=== PATIENT | female | born 1965 | race Caucasian/White ===

== ENCOUNTER 2016-06-01 14:36 | Outpatient (CLI) | payer MEDICAID | END 2016-06-01 14:37 | disposition home or self-care (01) | DX: B17.10 Acute hepatitis C without hepatic coma (principal) ==

== ENCOUNTER 2016-06-15 10:43 | Emergency (ER) | payer MEDICAID ==
[2016-06-15] MEDS ORDERED: ACETAMINOPHEN 325 MG TABLET PO STA (11:44)
[2016-06-15] MEDS ORDERED: ACETAMINOPHEN 325 MG TABLET PO ONE (11:48)
== END 2016-06-15 14:17 | disposition home or self-care (01) ==
DX: M25.551 Pain in right hip (principal); G89.29 Other chronic pain; M25.851 Other specified joint disorders, right hip; F17.200 Nicotine dependence, unspecified, uncomplicated
CPT/HCPCS: 73502; 93971; 99283; A9270

== ENCOUNTER 2016-07-24 00:49 | Emergency (ER) | payer MEDICAID ==
[2016-07-24] MEDS ORDERED: METHOCARBAMOL 500 MG TABLET PO STA (01:11)
[2016-07-24] MEDS ORDERED: HYDROcod/ACET 5/325 Prepack 6 PO ONE ×2 (01:11→01:32)
[2016-07-24] MEDS ORDERED: HYDROcod/ACETAM 5/325 MG TABLET PO STA (01:11)
[2016-07-24] MEDS ORDERED: IBUPROFEN 600 MG TABLET PO STA (01:11)
[2016-07-24] MEDS ORDERED: HYDROcod/ACETAM 5/325 MG TABLET ONE (01:31)
[2016-07-24] MEDS ORDERED: IBUPROFEN 600 MG TABLET PO ONE (01:32)
[2016-07-24] MEDS ORDERED: METHOCARBAMOL 500 MG TABLET PO ONE (01:32)
== END 2016-07-24 02:13 | disposition home or self-care (01) ==
DX: M54.41 Lumbago with sciatica, right side (principal); F17.200 Nicotine dependence, unspecified, uncomplicated
CPT/HCPCS: 99283; A9270

== ENCOUNTER 2016-08-24 17:56 | Outpatient (CLI) | payer MEDICAID | END 2016-08-24 17:57 | disposition home or self-care (01) | DX: J98.9 Respiratory disorder, unspecified (principal) ==

== ENCOUNTER 2016-09-13 00:29 | Outpatient (CLI) | payer MEDICAID | END 2016-09-13 00:30 | disposition critical access hospital (66) | LOC: EMS 00:29 | PROVIDERS: ATTEND Surgery | DX: M79.645 Pain in left finger(s) (principal) | CPT/HCPCS: A0425; A0429 ==

== ENCOUNTER 2016-09-13 00:41 | Emergency (ER) | payer MEDICAID ==
[2016-09-13] MEDS ORDERED: LIDOCAINE 2% 10 ML MDV SUBQ STA (00:55)
[2016-09-13] MEDS ORDERED: LIDOCAINE 2% 10 ML MDV ONE (00:57)
[2016-09-13] MEDS ORDERED: CLINDAMYCIN 150 MG CAPSULE PO STA (01:10)
[2016-09-13] MEDS ORDERED: CLINDAMYCIN 150 MG CAPSULE PO ONE (01:13)
== END 2016-09-13 01:25 | disposition home or self-care (01) ==
DX: L03.012 Cellulitis of left finger (principal); B95.62 Methicillin resistant Staphylococcus aureus infection as the cause of diseases classified elsewhere; R03.0 Elevated blood-pressure reading, without diagnosis of hypertension; F17.200 Nicotine dependence, unspecified, uncomplicated; Z88.2 Allergy status to sulfonamides
CPT/HCPCS: 10060; 87070; 87077; 87181; 87205; 99283; A9270

== ENCOUNTER 2017-05-22 19:04 | Emergency (ER) | payer MEDICAID ==
[2017-05-22 19:14] VITALS: BP 141/76
[2017-05-22 19:47] LABS: CLARITY,URINE CLOUDY (CLEAR)
[2017-05-22 19:51] LABS: BACTERIA,URINE Few /HPF (None Seen); SQUAMOUS EPITHELIAL CELL,UR FEW Squamous (<= Few)
--- NOTE | 2017-05-22 19:57 | ED Physician Documentation ---
PD HPI FEMALE - Stated complaint Stated Complaint: FEM - Chief complaint Chief Complaint: General - History obtained from History obtained from: Patient - History of Present Illness Timing - onset: How many days ago (few) Timing - duration: Days Timing - details: Gradual onset, Still present Associated symptoms: Dysuria, Urinary frequency. No: Fever, Vaginal bleeding, Vaginal discharge, Genital sore/lesion Similar symptoms before: Diagnosis (UTI) Review of Systems Constitutional: denies: Fever, Chills : reports: Dysuria, Frequency. 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 HEENT: None Psych: Depression, Anxiety, Schizophrenia Musculoskeletal: None, Chronic back pain Derm: None - Past Surgical History Past Surgical History: Yes Derm: Skin grafts - Present Medications Home Medications: Ambulatory Orders Medication Instructions Recorded Confirmed Cephalexin [Keflex] 500 mg PO TID #18 capsule 05/22/17 - Allergies Allergies/Adverse Reactions: Allergies Allergy/AdvReac Type Severity Reaction Status Date / Time Sulfa (Sulfonamide Allergy Intermediate Edema Verified 05/22/17 19:14 Antibiotics) - Social History Does the pt smoke?: Yes Smoking Status: Current every day smoker Does the pt drink ETOH?: Yes Does the pt have substance abuse?: No - Immunizations Immunizations are current?: Yes - POLST Patient has POLST: No PD ED PE NORMAL - Vitals Vital signs reviewed: Yes - General General: Alert and oriented X 3, Well developed/nourished - Abdomen Abdomen: Soft, Non tender - Female Female : Deferred - Back Back: No CVA TTP Results - Vitals Vitals: Oxygen O2 Source Room air - Labs Labs: Microbiology 05/22/17 19:25 Urine Culture - Final Urine,Clean Catch 10-50,000 COLONIES/ML Polymicrobial growth including potential pathogens. This is suggestive of skin or other contamination. Laboratory Tests 05/22/17 19:25 Urine Color DK. ORANGE Urine Clarity CLOUDY Urine pH Ur Specific Mackay Urine Protein Urine Glucose (UA) Urine Ketones Urine Occult Blood Urine Nitrite Urine Bilirubin Urine Urobilinogen Ur Leukocyte Esterase Urine RBC 11-25 H Urine WBC >25 H Ur Squamous Epith Cells FEW Squamous Urine Bacteria Few Ur Microscopic Review INDICATED Urine Culture Comments INDICATED Urine HCG, Qual PD MEDICAL DECISION MAKING - ED course Complexity details: reviewed results, considered differential, d/w patient Departure - Departure Disposition: 01 Home, Self Care Clinical Impression: Dysuria UTI (urinary tract infection) Qualifiers: Urinary tract infection type: acute cystitis Hematuria presence: without hematuria Qualified Code(s): N30.00 - Acute cystitis without hematuria Condition: Stable Record reviewed to determine appropriate education?: Yes Instructions: ED UTI Cystitis Female Follow-Up: Tuyet Rocha ARNP [Primary Care Provider] - Prescriptions: Cephalexin [Keflex] 500 mg PO TID #18 capsule Comments: Drink lots of fluids. Azo if needed for discomfort. Tylenol or ibuprofen if needed for pain or fevers. Keflex 3 times a day for 6 days for the infection. Recheck if not improving over the next few days. Discharge Date/Time: 05/22/17 20:23
[2017-05-22] MEDS ORDERED: cephALEXin 250 MG CAPSULE PO STA (20:17)
== END 2017-05-22 20:23 | disposition home or self-care (01) ==
LOC: ED 19:04
DX: R30.0 Dysuria (principal); N30.00 Acute cystitis without hematuria; F17.200 Nicotine dependence, unspecified, uncomplicated
CPT/HCPCS: 81001; 81025; 87086; 99282; 99283; A9270; 81003

== ENCOUNTER 2017-07-27 23:41 | Emergency (ER) | payer MEDICAID ==
[2017-07-28] MEDS ORDERED: METOCLOPRAMIDE 10 MG/2 ML VIAL IVP STA (00:05)
[2017-07-28] MEDS ORDERED: diphenhydrAMINE INJ 50 MG/ML VIAL IVP STA (00:05)
[2017-07-28] MEDS ORDERED: SODIUM CHLORIDE 0.9% 1,000 ML IV ONE (00:05)
[2017-07-28] MEDS ORDERED: KETOROLAC 60 MG/2 ML VIAL IVP STA (00:05)
--- NOTE | 2017-07-28 00:43 | XRAY Preliminary Report ---
Exam: XR CHEST 2 VIEW X-RAY IMPRESSION: 1. Probable COPD with bronchitis. 2. No consolidation. [facility] SITE ID: [id number]
--- NOTE | 2017-07-28 01:00 | ED Physician Documentation ---
PD HPI URI - Stated complaint Stated Complaint: ANTUNEZ, CHEST PAIN, BACK PAIN - Chief complaint Chief Complaint: Resp - History obtained from History obtained from: Patient - History of Present Illness Timing - onset: How many days ago (3) Timing details: Gradual onset, Still present Associated symptoms: Dry cough. No: Fever, Chills Similar symptoms before: No diagnosis Recently seen: Not recently seen - Additional information Additional information: Patient is a 52 year old female with a history of migraines who is presenting to the emergency department for cough and headache. patient states that she has been coughing for the last few days and no her chest hurts when she coughs. She also reports that she has a headache and has run out of her migraine medications. Review of Systems Constitutional: denies: Fever, Chills Eyes: reports: Reviewed and negative Ears: reports: Reviewed and negative Nose: reports: Reviewed and negative Throat: reports: Reviewed and negative Cardiac: reports: Chest pain / pressure. denies: Palpitations Respiratory: reports: Dyspnea, Cough, Wheezing GI: denies: Nausea, Vomiting : reports: Reviewed and negative Musculoskeletal: reports: Reviewed and negative Neurologic: reports: Headache. 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 HEENT: None Psych: Depression, Anxiety, Schizophrenia Musculoskeletal: None, Chronic back pain Derm: None - Past Surgical History Past Surgical History: Yes Derm: Skin grafts - Present Medications Home Medications: Ambulatory Orders Medication Instructions Recorded Confirmed Benzonatate [Tessalon] 100 mg PO TID #14 capsule 07/28/17 predniSONE [Prednisone] 40 mg PO DAILY 5 Days tablet 07/28/17 - Allergies Allergies/Adverse Reactions: Allergies Allergy/AdvReac Type Severity Reaction Status Date / Time Sulfa (Sulfonamide Allergy Intermediate Edema Verified 07/27/17 23:53 Antibiotics) - Social History Does the pt smoke?: Yes Smoking Status: Current every day smoker Does the pt drink ETOH?: Yes Does the pt have substance abuse?: No - Immunizations Immunizations are current?: Yes - POLST Patient has POLST: No PD ED PE NORMAL - Vitals Vital signs reviewed: Yes - General General: Alert and oriented X 3, No acute distress - HEENT HEENT: Atraumatic, PERRL, Moist mucous membranes - Neck Neck: Supple, no meningeal sign, No JVD - Cardiac Cardiac: RRR, No murmur - Respiratory Respiratory: No respiratory distress - Abdomen Abdomen: Soft, Non tender - Derm Derm: Normal color, Warm and dry, No rash - Extremities Extremities: No deformity, Normal ROM s pain, No calf tenderness / cord - Neuro Neuro: Alert and oriented X 3, pyroglazer 2-12 intact, No motor deficit, Normal speech Eye Opening: Spontaneous Motor: Obeys Commands Verbal: Oriented GCS Score: 15 - Psych Psych: Normal mood PD ED PE EXPANDED - Psych Psych: Other (odd affect, possible use of sympathometics ) Results - Vitals Vitals: Vital Signs - 24 hr 07/27/17 23:48 Temperature 36.8 C Heart Rate 104 H Respiratory 18 Rate Blood Pressure 144/87 H O2 Saturation 97 Oxygen O2 Source Room air - Rads (name of study) chest x-ray Radiology: Final report received (suspicious for copd/bronchitis) PD MEDICAL DECISION MAKING - ED course Complexity details: reviewed old records, reviewed results, re-evaluated patient , considered differential, d/w patient, d/w family ED course: Patient was seen and examined at bedside. Patient refused IV hydration or medications. Patient was treated with toradol, benadryl and reglan. chest x- ray was ordered. When patient returned from imaging the results were reviewed. Patient had no sign of acute pneumonia but findings were worrisome for bronchitis. patient was treated with prednisone. Patient required no further work up and was stable for discharge with outpatient follow up. Departure - Departure Disposition: 01 Home, Self Care Clinical Impression: Bronchitis Condition: Good Instructions: ED Bronchitis Asthmatic Follow-Up: Tuyet Rocha ARNP [Primary Care Provider] - Prescriptions: Benzonatate [Tessalon] 100 mg PO TID #14 capsule predniSONE [Prednisone] 40 mg PO DAILY 5 Days tablet Comments: Your symptoms today are being caused by bronchitis. You have been placed on prednisone for the next 5 days. You should take the tessalon perles for cough. You should follow up with your doctor this week if your symptoms don't improve. You should make sure you stay well hydrated and get plenty of sleep as those can be two major triggers for migraines.
[2017-07-28] MEDS ORDERED: predniSONE 20 MG TABLET PO STA (01:01)
--- NOTE | 2017-07-28 01:08 | XRAY Report ---
EXAM: CHEST RADIOGRAPHY EXAM DATE: 07/28/2017 12:31 AM. CLINICAL HISTORY: Fever, cough. COMPARISON: 08/24/2016. TECHNIQUE: 2 views. FINDINGS: Lungs/Pleura: The lungs are hyperinflated. Bronchial wall thickening noted. No focal consolidation, e ffusions or pneumothorax. Mediastinum: Heart and mediastinal contours are unremarkable. Other: None. IMPRESSION: 1. Probable COPD with bronchitis. 2. No consolidation. [facility] Referring Provider Line: [phone] SITE ID: [id number]
[2017-07-28 01:11] VITALS: BP 132/81
== END 2017-07-28 01:14 | disposition home or self-care (01) ==
LOC: ED 23:41
DX: J40 Bronchitis, not specified as acute or chronic (principal); F17.200 Nicotine dependence, unspecified, uncomplicated
CPT/HCPCS: 71046; 96374; 96375; 99283; J1200; J2765; J7512

== ENCOUNTER 2017-10-06 08:05 | Emergency (ER) | payer MEDICAID ==
[2017-10-06 08:15] VITALS: BP 145/86
--- NOTE | 2017-10-06 09:12 | ED Physician Documentation ---
PD HPI CHEST PAIN - Stated complaint Stated Complaint: R SHOULDER PX - Chief complaint Chief Complaint: General - History obtained from History obtained from: Patient - History of Present Illness Timing - onset: How many days ago (3) Timing - onset during: Rest Timing - duration: Days (3) Timing - details: Gradual onset, Still present Quality: Sharp, Pain Location: Right chest, Right shoulder/arm Radiation: Neck Improved by: Nothing Worsened by: Movement, Palpation, Position Associated symptoms: No: Shortness of air, Diaphoresis, Nausea, Vomiting, Feeling faint / dizzy, General Weakness, Palpitations, Cough Similar symptoms before: Has not had sx before Recently seen: Emergency Dept - Additional information Additional information: 52-year-old female with a history of COPD had a fall about 2 weeks ago injuring her left leg. She did not think much of the fall at the time but over the last 3 days she has began to develop some pain in her right neck shoulder and clavicle and in her right lower back radiating into her groin. She is wondering if this may might have something to do with a fall that she had. She does not feel sick at this time she denies fever chills sweats or new cough. Review of Systems Constitutional: denies: Fever Eyes: denies: Decreased vision Ears: denies: Ear pain Nose: denies: Rhinorrhea / runny nose, Congestion Throat: denies: Sore throat Cardiac: reports: Chest pain / pressure. 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 HEENT: None Psych: Depression, Anxiety, Schizophrenia Musculoskeletal: None, Chronic back pain Derm: None - Past Surgical History Past Surgical History: Yes Derm: Skin grafts - Present Medications Home Medications: Ambulatory Orders Medication Instructions Recorded Confirmed No Known Home Medications [No 10/06/17 10/06/17 Known Home Medications] - Allergies Allergies/Adverse Reactions: Allergies Allergy/AdvReac Type Severity Reaction Status Date / Time Sulfa (Sulfonamide Allergy Intermediate Edema Verified 07/27/17 23:53 Antibiotics) - Social History Does the pt smoke?: Yes Smoking Status: Current every day smoker Does the pt drink ETOH?: Yes Does the pt have substance abuse?: No - Immunizations Immunizations are current?: Yes - POLST Patient has POLST: No PD ED PE NORMAL - Vitals Vital signs reviewed: Yes (hypertensive mild ) - General General: Alert and oriented X 3, No acute distress, Well developed/nourished, Other (poor rambling historian. ) - HEENT HEENT: Atraumatic, PERRL, EOMI - Neck Neck: Supple, no meningeal sign, No bony TTP - Cardiac Cardiac: RRR, No murmur - Respiratory Respiratory: No respiratory distress, Clear bilaterally - Abdomen Abdomen: Soft, Non tender - Back Back: No CVA TTP, No spinal TTP - Derm Derm: Normal color, Warm and dry, No rash - Extremities Extremities: No deformity, No edema - Neuro Neuro: No motor deficit, No sensory deficit, Normal speech Eye Opening: Spontaneous Motor: Obeys Commands Verbal: Oriented GCS Score: 15 - Psych Psych: Normal mood, Normal affect Results - Vitals Vitals: Vital Signs - 24 hr 10/06/17 08:11 Temperature 36.6 C Heart Rate 92 Respiratory 16 Rate Blood Pressure 145/86 H O2 Saturation 100 Oxygen O2 Source Room air - EKG (time done) 0824 Rate: Rate (enter#) (82) Ischemia: Non specific changes Compare to prior EKG: Old EKG unavailable Computer interpretation: Agree with computer - Rads (name of study) 2 veiw chest Radiology: Prelim report reviewed (Impression: 1. No acute cardiopulmonary abnormality. 2 Vague nodular opacity at the left mid to upper lung may represent summation artifact. CT should be considered for further evaluation.) , EMP read indepedently, See rad report PD MEDICAL DECISION MAKING - ED course Complexity details: reviewed results, re-evaluated patient, considered differential, d/w patient ED course: 52-year-old female with some vague symptoms of pain in her right clavicle area and into her right axilla and down the right arm and into her neck has no specific findings on physical exam and does not have a functional deficit. She is complaining of some pain in the lower back radiating around to the front as well. She is unable to provide adequate history as this is the timing of each of these types of pains.She is treated for cervical radiculopathy with 10 mg of dexamethasone. An x-ray of the chest is obtained and no abnormalities of the clavicle are seen. The patient leaves the emergency department before her chest x-ray is formally read and she calls back to the emergency department regarding the results of her x-ray. I personally talked to the patient to inform her that there was a concern of a nodule in the chest and CT scanning is recommended. Departure - Departure Disposition: 01 Home, Self Care Clinical Impression: Cervical radiculopathy Condition: Stable Instructions: ED Cervical Radiculopathy Follow-Up: Tuyet Rocha ARNP [Primary Care Provider] - Discharge Date/Time: 10/06/17 09:55
[2017-10-06] MEDS ORDERED: DEXAMETHASONE 10 MG/ML VIAL PO STA (09:32)
[2017-10-06] MEDS ORDERED: CHERRY SYRUP 10 ML UDC PO ONE (09:51)
--- NOTE | 2017-10-06 09:57 | XRAY Report ---
EXAM: CHEST RADIOGRAPHY EXAM DATE: 10/06/2017 09:29 AM. CLINICAL HISTORY: Right upper chest pain. COMPARISON: 07/28/2017. TECHNIQUE: 2 views. FINDINGS: Lungs/Pleura: Vague nodular opacity at the left mid to upper lung may represent summation artifact. O therwise no focal pulmonary opacity. No significant pleural effusion or evidence of pneumothorax. Mediastinum: Heart and mediastinal contours are unremarkable. Other: None. IMPRESSION: 1. No acute cardiopulmonary abnormality. 2. Vague nodular opacity at the left mid to upper lung may represent summation artifact. CT should be considered for further evaluation. [facility] Referring Provider Line: [phone] SITE ID: [id number]
--- NOTE | 2017-10-06 09:57 | XRAY Preliminary Report ---
Exam: XR CHEST 2 VIEW X-RAY IMPRESSION: 1. No acute cardiopulmonary abnormality. 2. Vague nodular opacity at the left mid to upper lung may represent summation artifact. CT should be considered for further evaluation. [facility] SITE ID: [id number]
== END 2017-10-06 09:55 | disposition home or self-care (01) ==
LOC: ED 08:05
DX: M54.12 Radiculopathy, cervical region (principal); F17.200 Nicotine dependence, unspecified, uncomplicated
CPT/HCPCS: 71046; 93005; 99283; 99284; A9270

== ENCOUNTER 2017-10-13 11:46 | Outpatient (CLI) | payer MEDICAID ==
--- NOTE | 2017-10-13 12:27 | XRAY Report ---
Procedure Date: 10/13/2017 Accession Number: [id number] / [id number] Procedure: XRS - Clavicle RT CPT Code: FULL RESULT: EXAM: Clavicle RT DATE: 10/13/2017 11:57 AM CLINICAL HISTORY: NECK PAIN, CLAVICLE PAIN, RIGHT COMPARISON: Chest x-ray 10/06/2017 TECHNIQUE: AP and oblique views of the right clavicle FINDINGS: There is no evidence of clavicular fracture. Minimal degenerative changes are seen in the acromioclavicular joint. No foreign body is seen in the soft tissues. IMPRESSION: No evidence of clavicular fracture. Minimal degenerative changes of the AC joint.
== END 2017-10-13 11:47 | disposition home or self-care (01) ==
LOC: DI.S 11:46
PROVIDERS: ATTEND Nurse Practitioner Family
DX: M19.011 Primary osteoarthritis, right shoulder (principal)

== ENCOUNTER 2017-10-23 10:00 | Outpatient (CLI) | payer MEDICAID ==
--- NOTE | 2017-10-25 09:27 | CT Report ---
Procedure Date: 10/23/2017 Accession Number: [id number] / [id number] Procedure: CT - Chest W/O CPT Code: FULL RESULT: EXAM: CT CHEST EXAM DATE: 10/23/2017 11:00 AM. CLINICAL HISTORY: Vague nodular opacity at left mid to upper lung noted on recent chest x-ray. These assess. COMPARISONS: Chest x-ray from 10/06/2017 and 07/28/2017. TECHNIQUE: Routine helical CT imaging was performed through the chest. IV contrast: None. Reconstructions: Coronal and sagittal. In accordance with CT protocol optimization, one or more of the following dose reduction techniques were utilized for this exam: automated exposure control, adjustment of mA and/or KV based on patient size, or use of iterative reconstructive technique. FINDINGS: Lungs/Pleura: No nodules. Minimal biapical subpleural mclean small cysts/bullae. No consolidation. No pleural effusions and no evidence of interstitial lung disease. No abnormalities are identified in the left mid-upper lung to coincide with the density noted on recent chest x-ray. Parenchymal cyst in the left lower lobe measuring 9 mm. Mediastinum: The visualized lateral gland is unremarkable. Heart size is normal. Trace pericardial effusion. Very small hiatal hernia. No enlarged mediastinal or hilar lymph nodes. No mediastinal hematoma. Maximal size of the mid ascending aorta measures 3.5 cm. Thoracic aortic calcified plaque. Bones: Degenerative changes of the thoracic spine. No acute osseous abnormalities. Mild thoracic scoliosis. Visualized Abdomen: Included portions of the liver, gallbladder, adrenals, spleen, pancreas and left kidney as well as the stomach and colon are unremarkable. Other: None. IMPRESSION: 1. No parenchymal lung abnormalities R identified in particular within the left mid-upper lung to coincide with the density noted on recent chest x-ray from 10/06/2017. No parenchymal nodules. 2. No thoracic adenopathy. [facility]
== END 2017-10-23 23:59 ==
LOC: DI 10:00
PROVIDERS: ATTEND Nurse Practitioner Family
DX: R91.8 Other nonspecific abnormal finding of lung field (principal)
CPT/HCPCS: 71250

== ENCOUNTER 2017-11-07 06:52 | Emergency (ER) | payer MEDICAID ==
--- NOTE | 2017-11-07 08:09 | ED Physician Documentation ---
PD HPI ABD PAIN - Stated complaint Stated Complaint: ABD PX - Chief complaint Chief Complaint: Abd Pain - History obtained from History obtained from: Patient - History of Present Illness Timing - onset: How many days ago (2-3) Timing - duration: Days (2-3) Timing - details: Gradual onset, Still present, Waxing and waning Quality: Cramping, Aching Location: All over / everywhere Radiation: No: Lower back, Left flank, Right flank Improved by: Laying still Worsened by: Eating, Position (lying on back), Palpation. No: Breathing Associated symptoms: Nausea. No: Fever, Vomiting, Diarrhea, Melena Similar symptoms before: Has not had sx before Recently seen: Not recently seen Review of Systems Constitutional: reports: Myalgias. denies: Fever, Chills Nose: denies: Rhinorrhea / runny nose, Congestion Throat: denies: Sore throat Cardiac: denies: Chest pain / pressure, Palpitations Respiratory: denies: Cough GI: reports: Abdominal Pain, Nausea. 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 HEENT: None Psych: Depression, Anxiety, Schizophrenia Musculoskeletal: None, Chronic back pain Derm: None - Past Surgical History Past Surgical History: Yes Derm: Skin grafts - Present Medications Home Medications: Ambulatory Orders Medication Instructions Recorded Confirmed Dicyclomine [Bentyl] 10 mg PO QID PRN #20 capsule 11/07/17 Naproxen 375 mg PO BID #15 tablet 11/07/17 Ondansetron HCl [Zofran] 4 mg PO Q6H PRN #20 tablet 11/07/17 - Allergies Allergies/Adverse Reactions: Allergies Allergy/AdvReac Type Severity Reaction Status Date / Time Sulfa (Sulfonamide Allergy Intermediate Edema Verified 11/07/17 06:57 Antibiotics) - Social History Does the pt smoke?: Yes Smoking Status: Current every day smoker Does the pt drink ETOH?: Yes Does the pt have substance abuse?: No - Immunizations Immunizations are current?: Yes - POLST Patient has POLST: No PD ED PE NORMAL - Vitals Vital signs reviewed: Yes - General General: Alert and oriented X 3, No acute distress, Well developed/nourished - HEENT HEENT: PERRL, Pharynx benign - Neck Neck: Supple, no meningeal sign, No adenopathy - Cardiac Cardiac: RRR, No murmur - Respiratory Respiratory: Clear bilaterally - Abdomen Abdomen: Normal bowel sounds, Soft, Non distended, No organomegaly, Other ( tender diffusely without guarding nor percussion tenderness. ) - Female Female : Deferred - Rectal Rectal: Deferred - Derm Derm: Normal color, Warm and dry - Neuro Neuro: Alert and oriented X 3, No motor deficit, Normal speech Results - Vitals Vitals: Oxygen O2 Source Room air - Labs Labs: Laboratory Tests 11/07/17 11/07/17 08:36 08:36 WBC 10.1 RBC 4.87 Hgb 15.0 Hct 44.1 MCV 90.6 MCH 30.7 MCHC 33.9 RDW 13.3 Plt Count 272 MPV 8.0 Neut # (Auto) 6.6 Lymph # (Auto) 2.6 Cassia # (Auto) 0.6 Eos # (Auto) 0.2 Baso # (Auto) 0.1 Absolute Nucleated RBC 0.00 Nucleated RBC % 0.0 Sodium 133 L Potassium 4.1 Chloride 97 L Carbon Dioxide 26 Anion Gap 10.0 BUN 13 Creatinine 0.6 Estimated GFR (MDRD) 104 Glucose 122 H Calcium 9.0 Total Bilirubin 0.4 AST 20 ALT 24 Alkaline Phosphatase 98 Total Protein 7.7 Albumin 3.8 Globulin 3.9 Albumin/Globulin Ratio 1.0 Lipase 26 - Rads (name of study) abd/pelvic CT Radiology: Prelim report reviewed (no acute process. ) PD MEDICAL DECISION MAKING - ED course Complexity details: considered differential (Not clear cause of the pain. Feeling better with meds and fluids. Labs are good. CT no acute process. ), d/w patient - Sepsis Event Vital Signs: Oxygen O2 Source Room air Departure - Departure Disposition: 01 Home, Self Care Clinical Impression: Abdominal pain Qualifiers: Abdominal location: generalized Qualified Code(s): R10.84 - Generalized abdominal pain Condition: Stable Record reviewed to determine appropriate education?: Yes Instructions: ED Abdominal Pain Unkn Cause Follow-Up: Tuyet Rocha ARNP [Primary Care Provider] - Prescriptions: Dicyclomine [Bentyl] 10 mg PO QID PRN #20 capsule PRN Reason: Spasms Naproxen 375 mg PO BID #15 tablet Ondansetron HCl [Zofran] 4 mg PO Q6H PRN #20 tablet PRN Reason: Nausea / Vomiting Comments: Drink lots of fluids. Your CT scan and blood tests are normal. There is no signs of focal abnormality such as appendicitis, gallbladder, kidney stones, obstruction. Your symptoms sound likely to be some intestinal cramping and spasming. This might be food related or viral at times. Use naproxen twice daily for the next few days for pain and inflammation. Add Zofran if needed for nausea. Dicyclomine for pain and cramps. Recheck if not overall better in the next couple of days and return sooner if worse. Discharge Date/Time: 11/07/17 09:54
[2017-11-07] MEDS ORDERED: ONDANSETRON ODT 4 MG TABLET TL STA (08:22)
[2017-11-07] MEDS ORDERED: KETOROLAC 30 MG/ML VIAL IM STA (08:22)
[2017-11-07] MEDS ORDERED: HYDROcod/ACETAM 5/325 MG TABLET PO STA (08:22)
[2017-11-07 08:44] LABS: BASOPHILS # (AUTO) 0.1 10^3/uL (0.0-0.1); BASOPHILS % (AUTO) 0.8 %; EOSINOPHILS # (AUTO) 0.2 10^3/uL (0.0-0.7); EOSINOPHILS % (AUTO) 1.8 %; LYMPHOCYTES # (AUTO) 2.6 10^3/uL (1.5-3.5); LYMPHOCYTES % (AUTO) 25.7 %; MEAN CORPUSCULAR HEMOGLOBIN 30.7 pg (27.0-31.0); MEAN CORPUSCULAR HGB CONC 33.9 g/dL (32.0-36.0); MEAN CORPUSCULAR VOLUME 90.6 fL (81.0-99.0); MONOCYTES # (AUTO) 0.6 10^3/uL (0.0-1.0); MONOCYTES % (AUTO) 6.1 %; NEUTROPHILS # (AUTO) 6.6 10^3/uL (1.5-6.6); NEUTROPHILS % (AUTO) 65.6 %; PLT - PLATELET COUNT 272 10^3/uL (130-450); RED BLOOD COUNT 4.87 10^6/uL (4.20-5.40); RED CELL DISTRIBUTION WIDTH 13.3 % (12.0-15.0); WHITE BLOOD COUNT 10.1 x10^3/uL (4.8-10.8)
[2017-11-07 08:55] LABS: ALBUMIN 3.8 g/dL (3.2-5.5); BILIRUBIN,TOTAL 0.4 mg/dL (0.2-1.0); CREATININE 0.6 mg/dL (0.4-1.0); TOTAL PROTEIN 7.7 g/dL (6.7-8.2)
--- NOTE | 2017-11-07 09:16 | CT Report ---
Procedure Date: 11/07/2017 Accession Number: [id number] / [id number] Procedure: CT - Abdomen/Pelvis W/O CPT Code: FULL RESULT: EXAM: CT ABDOMEN AND PELVIS WITHOUT CONTRAST EXAM DATE: 11/07/2017 08:55 AM. CLINICAL HISTORY: Lower abdominal pain; patient did not want IV started. COMPARISONS: Pelvic ultrasound 10/07/2012. TECHNIQUE: Routine helical CT imaging was performed through the abdomen and pelvis. IV contrast: None. Enteric contrast: No. Reconstructions: Coronal and sagittal. In accordance with CT protocol optimization, one or more of the following dose reduction techniques were utilized for this exam: automated exposure control, adjustment of mA and/or KV based on patient size, or use of iterative reconstructive technique. FINDINGS: Lung Bases: Unremarkable. Liver: Unremarkable noncontrast appearance. Gallbladder/Bile Ducts: Unremarkable. Spleen: Unremarkable noncontrast appearance. Pancreas: Unremarkable. Adrenal Glands: Unremarkable. Kidneys: No hydronephrosis or calculi. Peritoneal Cavity/Bowel: No free fluid, free air or adenopathy. No evidence of bowel obstruction or abnormal stool burden. There is mild diverticulosis of the sigmoid colon without evidence of acute diverticulitis. The appendix is well visualized and normal. Pelvic Organs: Unremarkable noncontrast appearance. The bladder and visualized pelvic organs are within normal limits. Vasculature: There is moderate atherosclerotic calcification of the abdominal aorta and iliac arteries. No aneurysm. Bones: No acute osseous abnormality. There are mild degenerative changes of the lower thoracic and lumbar spine. Other: None. IMPRESSION: 1. Mild diverticulosis of the sigmoid colon without evidence of acute diverticulitis. 2. Otherwise unremarkable noncontrast CT of the abdomen and pelvis. No intra-abdominal inflammatory change, bowel obstruction, or other acute abnormality visualized. RADIA
[2017-11-07 09:54] VITALS: BP 172/97
== END 2017-11-07 09:54 | disposition home or self-care (01) ==
LOC: ED 06:52
DX: R10.84 Generalized abdominal pain (principal)
CPT/HCPCS: 36415; 74176; 80053; 83690; 85025; 96372; 99283; A9270; Q0162

== ENCOUNTER 2017-12-04 06:48 | Emergency (ER) | payer MEDICAID ==
[2017-12-04] MEDS ORDERED: SUMAtriptan 6 MG/0.5 ML VIAL SUBQ STA (07:17)
[2017-12-04] MEDS ORDERED: ONDANSETRON ODT 4 MG TABLET TL STA (07:17)
--- NOTE | 2017-12-04 07:20 | ED Physician Documentation ---
History of Present Illness - Stated complaint Stated Complaint: MIGRAINE - Chief complaint Chief Complaint: General - Additonal information Additional information: hx from pt ANTUNEZ same as prior migraines since last night out of imitrex no head injury no CO no fever no numbness or weakness also got pulled by her dog last night and re-aggrevated her R clavicle pain Review of Systems Constitutional: denies: Fever Eyes: reports: Photophobia GI: reports: Nausea, Vomiting Musculoskeletal: denies: Neck pain Neurologic: reports: Headache. 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 : None HEENT: None Psych: Depression, Anxiety, Schizophrenia Musculoskeletal: None, Chronic back pain Derm: None - Past Surgical History Past Surgical History: Yes Derm: Skin grafts - Present Medications Home Medications: Ambulatory Orders Medication Instructions Recorded Confirmed Dicyclomine [Bentyl] 10 mg PO QID PRN #20 capsule 11/07/17 Naproxen 375 mg PO BID #15 tablet 11/07/17 Ondansetron HCl [Zofran] 4 mg PO Q6H PRN #20 tablet 11/07/17 Sumatriptan Succinate [Imitrex] 6 mg SQ ONCE PRN #4 cartridge 12/04/17 - Allergies Allergies/Adverse Reactions: Allergies Allergy/AdvReac Type Severity Reaction Status Date / Time Sulfa (Sulfonamide Allergy Intermediate Edema Verified 12/04/17 06:58 Antibiotics) - Social History Does the pt smoke?: Yes Smoking Status: Current every day smoker Does the pt drink ETOH?: Yes Does the pt have substance abuse?: No - Immunizations Immunizations are current?: Yes - POLST Patient has POLST: No PD ED PE NORMAL - Vitals Vital signs reviewed: Yes - HEENT HEENT: PERRL, EOMI, Other (globes soft, no TA TTP) - Neck Neck: Supple, no meningeal sign - Cardiac Cardiac: RRR - Respiratory Respiratory: Clear bilaterally - Extremities Extremities: Other (TTP R clavicle, no major deformity, no open wound) - Neuro Neuro: Alert and oriented X 3, message broker developer 2-12 intact, No motor deficit, No sensory deficit, Normal speech Eye Opening: Spontaneous Motor: Obeys Commands Verbal: Oriented GCS Score: 15 Results - Vitals Vitals: Vital Signs - 24 hr 12/04/17 06:56 Temperature 35.9 C L Heart Rate 78 Respiratory 20 Rate Blood Pressure 155/90 H O2 Saturation 100 Oxygen O2 Source Room air PD MEDICAL DECISION MAKING - ED course ED course: pt req imitrex which I wouldnt think would work well after ANTUNEZ established but it did and she felt much better - Sepsis Event Vital Signs: Vital Signs - 24 hr 12/04/17 06:56 Temperature 35.9 C L Heart Rate 78 Respiratory 20 Rate Blood Pressure 155/90 H O2 Saturation 100 Oxygen O2 Source Room air Departure - Departure Disposition: 01 Home, Self Care Clinical Impression: Migraine Condition: Good Instructions: ED Headache Migraine Follow-Up: Tuyet Rocha ARNP [Primary Care Provider] - Prescriptions: Sumatriptan Succinate [Imitrex] 6 mg SQ ONCE PRN #4 cartridge PRN Reason: Migraine Comments: I have refilled you imitrex The radiologist looked at your clavicle xray - there is no fracture or displacement of the bones Forms: Activity restrictions
--- NOTE | 2017-12-04 07:48 | XRAY Report ---
Procedure Date: 12/04/2017 Accession Number: [id number] / [id number] Procedure: XR - Clavicle RT CPT Code: FULL RESULT: EXAM: RIGHT CLAVICLE RADIOGRAPHY EXAM DATE: 12/04/2017 07:34 AM. CLINICAL HISTORY: Pain. COMPARISON: None. TECHNIQUE: 2 views. FINDINGS: Bones: No fractures or bone lesions. Joints: Moderate AC joint DJD. Soft Tissues: Unremarkable. IMPRESSION: 1. No acute osseous abnormality. 2. DJD. RADIA
[2017-12-04 08:23] VITALS: BP 148/84
== END 2017-12-04 08:25 | disposition home or self-care (01) ==
LOC: ED 06:48
DX: G43.909 Migraine, unspecified, not intractable, without status migrainosus (principal); M25.511 Pain in right shoulder; F17.200 Nicotine dependence, unspecified, uncomplicated
CPT/HCPCS: 73000; 96372; 99283; Q0162

== ENCOUNTER 2018-02-14 18:21 | Emergency (ER) | payer MEDICAID ==
[2018-02-14] MEDS ORDERED: IPRATROPIUM/ALBUTEROL 3 ML NEB INH STA ×2 (19:15→20:47)
[2018-02-14] MEDS ORDERED: DEXAMETHASONE 10 MG/ML VIAL PO STA (19:15)
[2018-02-14] MEDS ORDERED: ACETAMINOPHEN 500 MG TABLET PO STA (19:15)
[2018-02-14] MEDS ORDERED: CHERRY SYRUP 10 ML UDC PO ONE (19:20)
--- NOTE | 2018-02-14 20:15 | XRAY Report ---
Reason: cough Procedure Date: 02/14/2018 Accession Number: [id number] / [id number] Procedure: XR - Chest 2 View X-Ray CPT Code: 54906 FULL RESULT: EXAM: CHEST RADIOGRAPHY EXAM DATE: 02/14/2018 07:45 PM. CLINICAL HISTORY: Cough. COMPARISON: CHEST 2 VIEW 10/06/2017 9:15 AM. TECHNIQUE: 2 views. FINDINGS: Lungs/Pleura: Focal infiltrate, basilar left lower lobe, otherwise no focal opacities evident. No pleural effusion. No pneumothorax. Normal volumes. Mediastinum: Heart and mediastinal contours are unremarkable. Other: No bony abnormality noted. IMPRESSION: Basilar left lower lobe pneumonia. RADIA
[2018-02-14 20:19] VITALS: BP 111/69
[2018-02-14] MEDS ORDERED: DOXYCYCLINE 100 MG TABLET PO STA (20:39)
--- NOTE | 2018-02-14 20:47 | ED Physician Documentation ---
History of Present Illness - Stated complaint Stated Complaint: CONGESTION/COUGH - Chief complaint Chief Complaint: General - History obtained from History obtained from: Patient - Additonal information Additional information: 52-year-old female presents the emergency department with cough, nasal congestion and general fatigue. The patient reports chills and myalgias. No reports of fever or difficulty breathing. Symptoms are described as moderate. The patient does smoke. The patient reports a recent abscess in her Left axilla which was drained at home by her boyfriend. The patient reports significant improvement. No redness or swelling. Review of Systems Constitutional: reports: Chills, Myalgias, Fatigue. denies: Fever Eyes: denies: Discharge Ears: denies: Drainage/discharge Nose: reports: Rhinorrhea / runny nose, Congestion Throat: denies: Sore throat Respiratory: reports: Cough, Wheezing. 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 : None HEENT: None Psych: Depression, Anxiety, Schizophrenia Musculoskeletal: None, Chronic back pain Derm: None - Past Surgical History Past Surgical History: Yes Derm: Skin grafts - Present Medications Home Medications: Ambulatory Orders Medication Instructions Recorded Confirmed Ondansetron HCl [Zofran] 4 mg PO Q6H PRN #20 tablet 11/07/17 Sumatriptan Succinate [Imitrex] 6 mg SQ ONCE PRN #4 cartridge 12/04/17 Albuterol Sulf [Ventolin Hfa 1 - 2 puffs INH Q4HR PRN #1 inhaler 02/14/18 Inhaler] Doxycycline Hyclate 100 mg PO BID #20 capsule 02/14/18 - Allergies Allergies/Adverse Reactions: Allergies Allergy/AdvReac Type Severity Reaction Status Date / Time Sulfa (Sulfonamide Allergy Intermediate Edema Verified 02/14/18 18:44 Antibiotics) - Social History Does the pt smoke?: Yes Smoking Status: Current every day smoker Does the pt drink ETOH?: Yes Does the pt have substance abuse?: No - Immunizations Immunizations are current?: Yes - POLST Patient has POLST: No PD ED PE NORMAL - General General: Alert and oriented X 3, No acute distress - HEENT HEENT: Atraumatic, PERRL, EOMI, Ears normal, Moist mucous membranes - Neck Neck: Supple, no meningeal sign - Cardiac Cardiac: Strong equal pulses, Other (Regular tachycardia) - Respiratory Respiratory: No respiratory distress, Other (Bilateral wheezing) - Abdomen Abdomen: Soft, Non tender - Derm Derm: Normal color, Other (In the left axilla, there is evidence of a healing ab scess which was drained at home. There is no evidence of reaccumulation or cellulitis. Currently no findings that would necessitate) - Extremities Extremities: No deformity - Neuro Neuro: Alert and oriented X 3, Normal speech - Psych Psych: Normal affect Results - Vitals Vitals: Vital Signs - 24 hr 02/14/18 02/14/18 02/14/18 18:40 20:03 20:16 Temperature 37.2 C 37.1 C Heart Rate 110 H 98 95 Respiratory 16 18 16 Rate Blood Pressure 143/102 H 111/69 O2 Saturation 95 96 Oxygen O2 Source Room air - Rads (name of study) CXR Radiology: Final report received (IMPRESSION: Basilar left lower lobe pneumonia. ) PD MEDICAL DECISION MAKING - ED course ED course: The patient has pneumonia, the patient currently appears appropriate for discharge and ongoing outpatient management. I discussed with the patient smoking Cessation. No further incision and drainages warranted at this time for the healing abscess. I discussed with the patient signs for worsening regarding her pneumonia and advised returning to the emergency department immediately for any worsening or any concerns. Departure - Departure Disposition: 01 Home, Self Care Clinical Impression: Abscess Pneumonia Qualifiers: Pneumonia type: due to unspecified organism Laterality: unspecified laterality Lung location: unspecified part of lung Qualified Code(s): J18.9 - Pneumonia, unspecified organism Condition: Good Instructions: ED Pneumonia Adult Follow-Up: Tuyet Rocha ARNP [Primary Care Provider] - Within 1 week Prescriptions: Albuterol Sulf [Ventolin Hfa Inhaler] 1 - 2 puffs INH Q4HR PRN #1 inhaler PRN Reason: Shortness Of Air/Wheezing Doxycycline Hyclate 100 mg PO BID #20 capsule Comments: Please follow-up with primary care. Please return to the emergency department immediately for any worsening or any concerns.
== END 2018-02-14 21:16 | disposition home or self-care (01) ==
LOC: ED 18:21
DX: J18.9 Pneumonia, unspecified organism (principal); F17.200 Nicotine dependence, unspecified, uncomplicated; L02.412 Cutaneous abscess of left axilla
CPT/HCPCS: 71046; 94640; 94664; 99283; A9270

== ENCOUNTER 2018-05-25 12:36 | Outpatient (CLI) | payer MEDICAID ==
--- NOTE | 2018-05-25 15:24 | Mammography Report ---
Reason: BREAST PAIN,RIGHT Procedure Date: 05/25/2018 Accession Number: [id number] / [id number] Procedure: [facility] - Diagnostic Dig Bilat CPT Code: FULL RESULT: EXAM: Diagnostic Dig Bilat DATE: 05/25/2018 1:57 PM CLINICAL HISTORY: Right breast and chest wall pain. TECHNIQUE: Bilateral CC and MLO views were obtained. Additionally, bilateral laterally exaggerated cc views were obtained and left spot magnified CC and spot magnified MLO views were obtained. A left ML view was also. COMPARISON: Baseline examination. FINDINGS: The breasts demonstrate heterogeneously dense fibroglandular parenchyma bilaterally. No abnormalities identified in the right breast. The palpable marker corresponds to the chest wall near the axilla. Additional focused ultrasound examination of the palpable area along the right breast reveals normal tissue. The left breast demonstrates a focal asymmetry in the upper central breast around 12:00 approximately 5 cm from the nipple associated with calcifications which persists with spot magnifications. No mass is detected. Focused left breast ultrasound of the same region demonstrates only normal breast tissue. IMPRESSION: Probable benign findings RECOMMENDATION: Recommend diagnostic left mammogram in 6 months for further evaluation of the calcifications. BIRADS CATEGORY 3 STANDARD QUALIFYING STATEMENTS: 1. This examination was not reviewed with the aid of Computer-Aided Detection (CAD). 2. A negative or benign imaging report should not delay biopsy if clinically suspicious findings are present. Consider surgical consultation if warrented. More than 5% of cancers are not identified by imaging. 3. Dense breasts may obscure an underlying neoplasm.
== END 2018-05-25 12:37 | disposition home or self-care (01) ==
LOC: DI 12:36
PROVIDERS: ATTEND Nurse Practitioner Family
DX: N64.4 Mastodynia (principal); R92.1 Mammographic calcification found on diagnostic imaging of breast
CPT/HCPCS: 76642; 77066

== ENCOUNTER 2018-10-10 19:24 | Emergency (ER) | payer MEDICAID ==
[2018-10-10 19:35] VITALS: BP 155/92
[2018-10-10] MEDS ORDERED: SUMAtriptan 6 MG/0.5 ML VIAL SUBQ STA (19:38)
--- NOTE | 2018-10-10 19:41 | ED Physician Documentation ---
PD HPI HEADACHE - Stated complaint Stated Complaint: HEADACHE - Chief complaint Chief Complaint: Neuro - History obtained from History obtained from: Patient, Family - History of Present Illness Timing - onset: Today (53-year-old woman with history of relatively frequent migraines about weekly. She is between doctors right now and usually would just take Imitrex for this but she is out. It was a gradual onset mostly left temporal headache associated with photophobia and nausea starting this morning. There is no neck stiffness or fever with it.) Review of Systems Constitutional: denies: Fever, Chills Nose: denies: Rhinorrhea / runny nose, Congestion GI: reports: Nausea. 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 : None HEENT: None Psych: Depression, Anxiety, Schizophrenia Musculoskeletal: None, Chronic back pain Derm: None - Past Surgical History Past Surgical History: Yes Derm: Skin grafts - Present Medications Home Medications: Ambulatory Orders Medication Instructions Recorded Confirmed Sumatriptan Succinate [Imitrex] 6 mg SQ ONCE PRN #4 cartridge 12/04/17 RX: Albuterol Sulf [Ventolin Hfa 1 - 2 puffs INH Q4HR PRN #1 inhaler 02/14/18 10/10/18 Inhaler] RX: Sumatriptan Succinate [Imitrex] 100 mg PO DAILY PRN #10 tablet 10/10/18 - Allergies Allergies/Adverse Reactions: Allergies Allergy/AdvReac Type Severity Reaction Status Date / Time Sulfa (Sulfonamide Allergy Intermediate Edema Verified 10/10/18 19:38 Antibiotics) - Social History Does the pt smoke?: Yes Smoking Status: Current every day smoker Does the pt drink ETOH?: Yes Does the pt have substance abuse?: No - Immunizations Immunizations are current?: Yes - POLST Patient has POLST: No PD ED PE NORMAL - Vitals Vital signs reviewed: Yes - General General: Alert and oriented X 3, Other (Uncomfortable and photophobic) - HEENT HEENT: PERRL, EOMI - Neck Neck: Supple, no meningeal sign, No bony TTP - Neuro Neuro: Alert and oriented X 3, financial market dealer 2-12 intact, No motor deficit, No sensory deficit, Normal speech - Psych Psych: Normal mood, Normal affect Results - Vitals Vitals: Vital Signs - 24 hr 10/10/18 19:31 Temperature 36.3 C L Heart Rate 92 Respiratory 18 Rate Blood Pressure 155/92 H O2 Saturation 100 Oxygen O2 Source Room air PD MEDICAL DECISION MAKING - ED course ED course: The headache is gradual in onset and similar to prior headaches. As such I doubt subarachnoid hemorrhage. There are no infectious symptoms such as fever or stiff neck to make me suspect meningitis. No carbon monoxide exposure by history. She also needed a prescription for Imitrex. I wrote for the pills initially but she was concerned because in the past she is gotten prescriptions for the injections at home. I also wrote a handwritten prescription for Imitrex 6 mg subcutaneous once daily as needed headache #6 no refills, but I asked her to keep the prescription for the pills as well because I was concerned that her insurance may not fill the injections. Departure - Departure Disposition: Home, Self Care Clinical Impression: Migraine Condition: Good Record reviewed to determine appropriate education?: Yes Instructions: Imitrex, ED Headache Migraine Prescriptions: RX: Sumatriptan Succinate [Imitrex] 100 mg PO DAILY PRN #10 tablet PRN Reason: Headache Comments: Call your doctor to arrange a follow-up appointment, make the next available appointment. In the interim, return anytime if worse or if new symptoms develop. Your blood pressure was elevated today on check into the emergency department. This does not mean that you have hypertension, it is a common phenomenon to come to the emergency department and have elevated blood pressure. I recommend that you see your primary care physician within the week to have it rechecked when you are feeling better. Discharge Date/Time: 10/10/18 19:54
== END 2018-10-10 19:54 | disposition home or self-care (01) ==
LOC: ED 19:24
DX: G43.909 Migraine, unspecified, not intractable, without status migrainosus (principal); R03.0 Elevated blood-pressure reading, without diagnosis of hypertension; F17.200 Nicotine dependence, unspecified, uncomplicated
CPT/HCPCS: 99283

== ENCOUNTER 2018-11-21 19:30 | Emergency (ER) | payer MEDICAID ==
--- NOTE | 2018-11-21 20:38 | ED Physician Documentation ---
PD HPI HEADACHE - Stated complaint Stated Complaint: MIGRAINE ANTUNEZ - Chief complaint Chief Complaint: Neuro - History obtained from History obtained from: Patient - History of Present Illness Timing - onset: How many hours ago (4-5), Today Timing - onset during: Light activity Timing - duration: Hours Timing - details: Abrupt onset, Still present Worst headache ever?: No: Worst headache ever? (feels similar to prior migraines) Location: Left Quality: Throbbing, Aching Associated symptoms: Nausea. No: Fever, Stiff neck, Vomiting Worsened by: Light, Noise Contributing factors: No: Hypertension, Recent illness, Trauma Similar symptoms before: Diagnosis (migraines) Recently seen: Emergency Dept Review of Systems Constitutional: denies: Fever, Chills, Myalgias Eyes: reports: Photophobia Nose: denies: Rhinorrhea / runny nose, Congestion Throat: denies: Sore throat Cardiac: denies: Chest pain / pressure Respiratory: denies: Dyspnea, Cough GI: reports: Nausea. denies: Abdominal Pain, Vomiting, Diarrhea Skin: denies: Rash, Lesions Neurologic: reports: Headache. 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 HEENT: None Psych: Depression, Anxiety, Schizophrenia Musculoskeletal: None, Chronic back pain Derm: None - Past Surgical History Past Surgical History: Yes Derm: Skin grafts - Present Medications Home Medications: Ambulatory Orders Medication Instructions Recorded Confirmed Sumatriptan Succinate [Imitrex] 6 mg SQ ONCE PRN #4 cartridge 12/04/17 Albuterol Sulf [Ventolin Hfa 1 - 2 puffs INH Q4HR PRN #1 inhaler 02/14/18 10/10/18 Inhaler] Sumatriptan Succinate [Imitrex] 100 mg PO DAILY PRN #10 tablet 10/10/18 Ondansetron Odt [Zofran] 4 mg TL Q6H PRN #10 tablet 11/21/18 Sumatriptan Succinate [Imitrex] 50 mg PO ONCE PRN #5 tablet 11/21/18 - Allergies Allergies/Adverse Reactions: Allergies Allergy/AdvReac Type Severity Reaction Status Date / Time Sulfa (Sulfonamide Allergy Intermediate Edema Verified 11/21/18 19:36 Antibiotics) - Social History Does the pt smoke?: Yes Smoking Status: Current every day smoker Does the pt drink ETOH?: Yes Does the pt have substance abuse?: No - Immunizations Immunizations are current?: Yes - POLST Patient has POLST: No PD ED PE NORMAL - Vitals Vital signs reviewed: Yes - General General: Alert and oriented X 3, No acute distress, Well developed/nourished - HEENT HEENT: Atraumatic, Pharynx benign - Neck Neck: Supple, no meningeal sign, No adenopathy - Cardiac Cardiac: RRR, No murmur - Respiratory Respiratory: Clear bilaterally - Derm Derm: Normal color, Warm and dry - Neuro Neuro: Alert and oriented X 3, assistant federal public defender 2-12 intact, No motor deficit, No sensory d eficit, Normal speech Eye Opening: Spontaneous Motor: Obeys Commands Verbal: Oriented GCS Score: 15 Results - Vitals Vitals: Oxygen O2 Source Room air PD MEDICAL DECISION MAKING - ED course Complexity details: reviewed old records, re-evaluated patient (feels much improved with headache about gone after meds. ), considered differential, d/w patient Departure - Departure Disposition: 01 Home, Self Care Clinical Impression: Migraine Qualifiers: Migraine type: without aura Status migrainosus presence: without status migrainosus Intractability: not intractable Qualified Code(s): G43.009 - Migraine without aura, not intractable, without status migrainosus Condition: Stable Record reviewed to determine appropriate education?: Yes Instructions: ED Headache Migraine Prescriptions: Ondansetron Odt [Zofran] 4 mg TL Q6H PRN #10 tablet PRN Reason: Nausea / Vomiting Sumatriptan Succinate [Imitrex] 50 mg PO ONCE PRN #5 tablet PRN Reason: Migraine Comments: Stay well-hydrated. Tylenol or ibuprofen if needed for residual headache. For future migraines he can use combination of Zofran nausea medicine and Imitrex tablet. Discharge Date/Time: 11/21/18 21:48
[2018-11-21] MEDS ORDERED: KETOROLAC 30 MG/ML VIAL IM STA (20:51)
[2018-11-21] MEDS ORDERED: SUMAtriptan 6 MG/0.5 ML VIAL SUBQ STA (20:51)
[2018-11-21] MEDS ORDERED: ONDANSETRON ODT 4 MG TABLET TL STA (20:51)
[2018-11-21] MEDS ORDERED: DEXAMETHASONE 10 MG/ML VIAL PO STA (20:51)
[2018-11-21] MEDS ORDERED: CHERRY SYRUP 10 ML UDC PO ONE (20:51)
[2018-11-21 21:48] VITALS: BP 132/103
== END 2018-11-21 21:48 | disposition home or self-care (01) ==
LOC: ED 19:30
DX: G43.009 Migraine without aura, not intractable, without status migrainosus (principal); F17.200 Nicotine dependence, unspecified, uncomplicated
CPT/HCPCS: 96372; 99282; 99284; A9270; Q0162

== ENCOUNTER 2018-12-02 16:27 | Emergency (ER) | payer MEDICAID ==
[2018-12-02 19:08] VITALS: BP 131/104
--- NOTE | 2018-12-02 20:09 | ED Physician Documentation ---
PD HPI BACK PAIN - Stated complaint Stated Complaint: LOWER BACK/TAILBONE PX - Chief complaint Chief Complaint: Back Pain - History obtained from History obtained from: Patient - History of Present Illness Timing - onset: Today Timing - details: Gradual onset Location: Lower Associated symptoms: No: Fever, Weakness, Numbness, Incontinent of urine, Unable to urinate, Hematuria, Incontinent of stool Improves with: Rest Worsened by: Palpation Recently seen: Emergency Dept (31 [facility] ED visits since 2012; third ED visit in three months) - Additional information Additional information: c/o tailbone pain since noon today, gradual onset without inciting incident, denied injury Review of Systems Constitutional: denies: Fever, Chills, Sweats GI: reports: Reviewed and negative Musculoskeletal: reports: Back pain Neurologic: denies: Focal weakness, Numbness PD PAST MEDICAL HISTORY - Past Medical History Past Medical History: Yes Cardiovascular: None Respiratory: None Neuro: Migraines Endocrine/Autoimmune: None GI: None 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 : None HEENT: None Psych: Depression, Anxiety, Schizophrenia Musculoskeletal: None, Chronic back pain Derm: None - Past Surgical History Past Surgical History: Yes Derm: Skin grafts - Present Medications Home Medications: Ambulatory Orders Medication Instructions Recorded Confirmed Sumatriptan Succinate [Imitrex] 6 mg SQ ONCE PRN #4 cartridge 12/04/17 Albuterol Sulf [Ventolin Hfa 1 - 2 puffs INH Q4HR PRN #1 inhaler 02/14/18 10/10/18 Inhaler] Sumatriptan Succinate [Imitrex] 100 mg PO DAILY PRN #10 tablet 10/10/18 Ondansetron Odt [Zofran] 4 mg TL Q6H PRN #10 tablet 11/21/18 Sumatriptan Succinate [Imitrex] 50 mg PO ONCE PRN #5 tablet 11/21/18 Doxycycline Hyclate 100 mg PO BID #20 capsule 12/02/18 - Allergies Allergies/Adverse Reactions: Allergies Allergy/AdvReac Type Severity Reaction Status Date / Time Sulfa (Sulfonamide Allergy Intermediate Edema Verified 12/02/18 16:37 Antibiotics) - Social History Does the pt smoke?: Yes Smoking Status: Current every day smoker Does the pt drink ETOH?: Yes Does the pt have substance abuse?: No - Immunizations Immunizations are current?: Yes - POLST Patient has POLST: No PD ED PE NORMAL - Vitals Vital signs reviewed: Yes - General General: Alert and oriented X 3, No acute distress, Well developed/nourished - Back Back: No spinal TTP - Neuro Neuro: No motor deficit, No sensory deficit PD ED PE EXPANDED - Back Back visual: 1 - rash (flat erythema with sharp margins and mild tenderness, 1.5 cm diameter without fluctuance), tenderness Results - Vitals Vitals: Oxygen O2 Source Room air PD MEDICAL DECISION MAKING - ED course Complexity details: considered differential, d/w patient, d/w family Departure - Departure Disposition: 01 Home, Self Care Clinical Impression: Pilonidal cyst Condition: Good Instructions: ED Infec Skin Cellulitis, ED Cyst Pilonidal Infec Abx Only Follow-Up: [facility] [Provider Group] Prescriptions: Doxycycline Hyclate 100 mg PO BID #20 capsule Comments: As discussed, your exam suggests you have an infected pilonidal cyst and thus I recommend taking the antibiotics as prescribed. There are other possible causes of your symptoms, but at this time, tests in the emergency department are not indicated. Please follow up with your primary care provider Discharge Date/Time: 12/02/18 20:32
[2018-12-02] MEDS ORDERED: DOXYCYCLINE 100 MG TABLET PO STA (20:22)
== END 2018-12-02 20:32 | disposition home or self-care (01) ==
LOC: ED 16:27
DX: L05.91 Pilonidal cyst without abscess (principal); Z88.2 Allergy status to sulfonamides; F17.200 Nicotine dependence, unspecified, uncomplicated
CPT/HCPCS: 99282; 99283

== ENCOUNTER 2019-04-15 10:18 | Emergency (ER) | payer SELFPAY ==
[2019-04-15 10:31] VITALS: BP 130/87
[2019-04-15] MEDS ORDERED: SUMAtriptan 6 MG/0.5 ML VIAL SUBQ STA (11:13)
--- NOTE | 2019-04-15 11:15 | ED Physician Documentation ---
PD HPI HEADACHE - Stated complaint Stated Complaint: MIGRAINE - Chief complaint Chief Complaint: Neuro - History obtained from History obtained from: Patient, Friend - History of Present Illness Timing - onset: Last night Timing - onset during: Rest Timing - duration: Hours Timing - details: Abrupt onset, Still present Location: Global Quality: Throbbing Associated symptoms: Nausea. No: Fever, Stiff neck, Vomiting, Weakness, Numbness Improved by: Rest, Dark room, Quiet Worsened by: Light, Noise, Moving Contributing factors: No: Anticoagulated Similar symptoms before: Diagnosis (migraine) Recently seen: Not recently seen - Additional information Additional information: 54-year-old female with a history of migraines has developed a migraine last night. She had aura associated with this some flashing of light in her headache is global and she is out of her Imitrex. She states that there has been a lot of stress recently with a friend "Tariq "who last night. Patient denies any vomiting she states that she believes the Imitrex will help with her headache. Review of Systems Constitutional: denies: Fever Eyes: reports: Photophobia. denies: Decreased vision Ears: denies: Ear pain Nose: denies: Rhinorrhea / runny nose, Congestion Throat: denies: Sore throat Cardiac: denies: Chest pain / pressure, Palpitations Respiratory: denies: Dyspnea, Cough GI: reports: Abdominal Pain, Nausea. 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 : None HEENT: None Psych: Depression, Anxiety, Schizophrenia Musculoskeletal: None, Chronic back pain Derm: None - Past Surgical History Past Surgical History: Yes Derm: Skin grafts - Present Medications Home Medications: Ambulatory Orders Medication Instructions Recorded Confirmed Sumatriptan Succinate [Imitrex] 6 mg SQ ONCE PRN #4 cartridge 12/04/17 - Allergies Allergies/Adverse Reactions: Allergies Allergy/AdvReac Type Severity Reaction Status Date / Time Sulfa (Sulfonamide Allergy Intermediate Edema Verified 04/15/19 10:31 Antibiotics) - Social History Does the pt smoke?: Yes Smoking Status: Current every day smoker Does the pt drink ETOH?: Yes Does the pt have substance abuse?: No - Immunizations Immunizations are current?: Yes - POLST Patient has POLST: No PD ED PE NORMAL - Vitals Vital signs reviewed: Yes (hypertensive ) - General General: No acute distress, Well developed/nourished - HEENT HEENT: Atraumatic, PERRL, EOMI, Ears normal - Neck Neck: Supple, no meningeal sign, No bony TTP - Cardiac Cardiac: RRR, No murmur - Respiratory Respiratory: No respiratory distress, Clear bilaterally - Abdomen Abdomen: Normal bowel sounds, Soft, Non tender, Non distended, No organomegaly - Back Back: No CVA TTP, No spinal TTP - Derm Derm: Normal color, Warm and dry, No rash - Extremities Extremities: No deformity, No edema - Neuro Neuro: Alert and oriented X 3, hub cutter 2-12 intact, No motor deficit, No sensory deficit, Normal speech Eye Opening: Spontaneous Motor: Obeys Commands Verbal: Oriented GCS Score: 15 - Psych Psych: Other (mood is withdrawn and the affect is flat) Results - Vitals Vitals: Vital Signs - 24 hr 04/15/19 10:29 Temperature 36.7 C Heart Rate 82 Respiratory 16 Rate Blood Pressure 130/87 H O2 Saturation 99 Oxygen O2 Source Room air PD MEDICAL DECISION MAKING - ED course Complexity details: reviewed old records, considered differential, d/w patient, d/w family ED course: 54-year-old female with a history of migraine has been out of her sumatriptan and and she developed migraine last night with a aura. We were prepared to give the patient a migraine rescue and she requested sumatriptan which worked well to relieve her migraine. Departure - Departure Disposition: 01 Home, Self Care Clinical Impression: Migraine Qualifiers: Migraine type: with aura Status migrainosus presence: without status migrainosus Intractability: not intractable Qualified Code(s): G43.109 - Migraine with aura, not intractable, without status migrainosus Instructions: ED Headache Migraine Follow-Up: [facility] [Provider Group]
== END 2019-04-15 11:52 | disposition home or self-care (01) ==
LOC: ED 10:18
DX: G43.109 Migraine with aura, not intractable, without status migrainosus (principal); F17.200 Nicotine dependence, unspecified, uncomplicated
CPT/HCPCS: 96372; 99283; 99284

== ENCOUNTER 2019-04-21 08:43 | Emergency (ER) | payer MEDICAID ==
[2019-04-21] MEDS ORDERED: SUMAtriptan 6 MG/0.5 ML VIAL SUBQ STA (10:09)
[2019-04-21 11:10] VITALS: BP 145/76
--- NOTE | 2019-04-21 11:11 | ED Physician Documentation ---
PD HPI HEADACHE - Stated complaint Stated Complaint: HEADACHE - Chief complaint Chief Complaint: Neuro - History obtained from History obtained from: Patient - History of Present Illness Timing - onset: Yesterday Timing - onset during: Rest Timing - duration: Days (1) Timing - details: Gradual onset Pain level max: 7 Pain level now: 7 Location: Global Quality: Throbbing, Aching Associated symptoms: Nausea. No: Fever, Stiff neck, Vomiting, Weakness, Numbness, Syncope, Seizure, Eye pain, Vision changes Improved by: Rest, Dark room Worsened by: Light, Noise - Additional information Additional information: 54-year-old female has a history of migraine headaches. She is out of her Imitrex. This feels similar to her normal migraine. No trauma. No fevers. Gradual onset. 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 : None HEENT: None Psych: Depression, Anxiety, Schizophrenia Musculoskeletal: None, Chronic back pain Derm: None - Past Surgical History Past Surgical History: Yes Derm: Skin grafts - Present Medications Home Medications: Ambulatory Orders Medication Instructions Recorded Confirmed Sumatriptan Succinate [Imitrex] 6 mg SQ ONCE PRN #5 units 04/21/19 - Allergies Allergies/Adverse Reactions: Allergies Allergy/AdvReac Type Severity Reaction Status Date / Time Sulfa (Sulfonamide Allergy Intermediate Edema Verified 04/21/19 09:23 Antibiotics) - Social History Does the pt smoke?: Yes Smoking Status: Current every day smoker Does the pt drink ETOH?: Yes Does the pt have substance abuse?: No - Immunizations Immunizations are current?: Yes - POLST Patient has POLST: No PD ED PE NORMAL - Vitals Vital signs reviewed: Yes - General General: Alert and oriented X 3, Well developed/nourished, Other - HEENT HEENT: Atraumatic, PERRL, Ears normal, Moist mucous membranes, Pharynx benign - Neck Neck: Supple, no meningeal sign, No bony TTP - Cardiac Cardiac: RRR - Respiratory Respiratory: No respiratory distress, Clear bilaterally - Abdomen Abdomen: Soft, Non tender, Non distended - Derm Derm: Warm and dry - Extremities Extremities: Normal ROM s pain - Neuro Neuro: Alert and oriented X 3, geek squad manager 2-12 intact, No motor deficit, No sensory deficit, Normal speech Eye Opening: Spontaneous Motor: Obeys Commands Verbal: Oriented GCS Score: 15 - Psych Psych: Normal mood, Normal affect Results - Vitals Vitals: Oxygen O2 Source Room air PD MEDICAL DECISION MAKING - ED course Complexity details: re-evaluated patient, considered differential, d/w patient ED course: Patient appears to have her usual migraine headache. Resolved with Imitrex. Will prescribe her Imitrex for home as she is out of this. Patient counseled regarding signs and symptoms for which I believe and urgent re-evaluation would be necessary. Patient with good understanding of and agreement to plan and is comfortable going home at this time This document was made in part using voice recognition software. While efforts are made to proofread this document, sound alike and grammatical errors may occur. Departure - Departure Disposition: Home, Self Care Clinical Impression: Migraine Qualifiers: Migraine type: unspecified Status migrainosus presence: without status migrainosus Intractability: not intractable Qualified Code(s): G43.909 - Migraine, unspecified, not intractable, without status migrainosus Condition: Good Instructions: ED Headache Migraine Follow-Up: your,doctor in 1week [Other] Prescriptions: Sumatriptan Succinate [Imitrex] 6 mg SQ ONCE PRN #5 units PRN Reason: headache Comments: Follow-up with your doctor for refills of your medication. Return if you worsen. Discharge Date/Time: 04/21/19 11:24
== END 2019-04-21 11:24 | disposition home or self-care (01) ==
LOC: ED 08:43
DX: G43.909 Migraine, unspecified, not intractable, without status migrainosus (principal); F17.200 Nicotine dependence, unspecified, uncomplicated
CPT/HCPCS: 96372; 99283; 99284

== ENCOUNTER 2019-06-21 19:41 | Emergency (ER) | payer MEDICAID ==
[2019-06-21 19:48] VITALS: BP 127/104
--- NOTE | 2019-06-21 20:16 | ED Physician Documentation ---
PD HPI HEADACHE - Stated complaint Stated Complaint: ANTUNEZ - Chief complaint Chief Complaint: Neuro - History obtained from History obtained from: Patient - History of Present Illness Timing - onset: Today Timing - onset during: Rest, Light activity Timing - duration: Hours Timing - details: Abrupt onset, Still present Worst headache ever?: No: Worst headache ever? Location: Front, Right Quality: Throbbing, Aching Associated symptoms: Nausea. No: Fever, Stiff neck, Vomiting, Weakness, Numbness Improved by: Dark room Worsened by: Noise Similar symptoms before: Diagnosis (migraines, usually responsive to Imitrex injection, but she is out of them.) Review of Systems Constitutional: denies: Fever, Chills, Myalgias Eyes: reports: Decreased vision, Photophobia. denies: Loss of vision Nose: denies: Rhinorrhea / runny nose, Congestion Throat: denies: Sore throat Respiratory: denies: Cough GI: reports: Nausea. 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 : None HEENT: None Psych: Depression, Anxiety, Schizophrenia Musculoskeletal: None, Chronic back pain Derm: None - Past Surgical History Past Surgical History: Yes Derm: Skin grafts - Present Medications Home Medications: Ambulatory Orders Medication Instructions Recorded Confirmed Sumatriptan Succinate [Imitrex] 6 mg SQ ONCE PRN #5 units 04/21/19 Naproxen 375 mg PO BID #20 tablet 06/21/19 Promethazine [Phenergan] 25 mg PO Q6H PRN #10 tab 06/21/19 Sumatriptan Succinate [Imitrex] 6 mg SQ ONCE PRN #5 units 06/21/19 - Allergies Allergies/Adverse Reactions: Allergies Allergy/AdvReac Type Severity Reaction Status Date / Time Sulfa (Sulfonamide Allergy Intermediate Edema Verified 06/21/19 19:48 Antibiotics) - Social History Does the pt smoke?: Yes Smoking Status: Current every day smoker Does the pt drink ETOH?: Yes Does the pt have substance abuse?: No - Immunizations Immunizations are current?: Yes - POLST Patient has POLST: No PD ED PE NORMAL - Vitals Vital signs reviewed: Yes - General General: Alert and oriented X 3, Well developed/nourished, Other (appears uncomfrtable due to headache; alert and conversant. ) - HEENT HEENT: PERRL, EOMI (light sensntive), Pharynx benign - Neck Neck: Supple, no meningeal sign, No adenopathy - Cardiac Cardiac: RRR, No murmur - Respiratory Respiratory: Clear bilaterally - Derm Derm: Normal color, Warm and dry - Neuro Neuro: Alert and oriented X 3, powerhouse attendant 2-12 intact, No motor deficit, No sensory deficit, Normal speech, Other Eye Opening: Spontaneous Motor: Obeys Commands Verbal: Oriented GCS Score: 15 Results - Vitals Vitals: Oxygen O2 Source Room air PD MEDICAL DECISION MAKING - ED course Complexity details: re-evaluated patient (improved with migraine meds.), considered differential, d/w patient Departure - Departure Disposition: 01 Home, Self Care Clinical Impression: Migraine headache Qualifiers: Migraine type: without aura Status migrainosus presence: without status migrainosus Intractability: not intractable Qualified Code(s): G43.009 - Migraine without aura, not intractable, without status migrainosus Condition: Stable Record reviewed to determine appropriate education?: Yes Instructions: ED Headache Migraine Follow-Up: [facility] [Provider Group] Prescriptions: Naproxen 375 mg PO BID #20 tablet Promethazine [Phenergan] 25 mg PO Q6H PRN #10 tab PRN Reason: Nausea / Vomiting Sumatriptan Succinate [Imitrex] 6 mg SQ ONCE PRN #5 units PRN Reason: Migraine Comments: Use the Imitrex self injector as needed for migraine headaches subsequently with no more than 2 doses in a day. Add promethazine if needed for nausea with it. He can also add naproxen or ibuprofen to work in conjunction with the Imitrex. Follow-up with local primary care; try to obtain a new one. Discharge Date/Time: 06/21/19 21:29
[2019-06-21] MEDS ORDERED: KETOROLAC 30 MG/ML VIAL IM STA (20:47)
[2019-06-21] MEDS ORDERED: ONDANSETRON ODT 4 MG TABLET TL STA (20:47)
[2019-06-21] MEDS ORDERED: SUMAtriptan 6 MG/0.5 ML VIAL SUBQ STA (20:47)
== END 2019-06-21 21:29 | disposition home or self-care (01) ==
LOC: ED 19:41
DX: G43.009 Migraine without aura, not intractable, without status migrainosus (principal); F17.200 Nicotine dependence, unspecified, uncomplicated
CPT/HCPCS: 96372; 99283; 99284; Q0162

== ENCOUNTER 2019-08-08 03:56 | Emergency (ER) | payer MEDICAID ==
--- NOTE | 2019-08-08 04:00 | ED Physician Documentation ---
PD HPI HEADACHE - Stated complaint Stated Complaint: ANTUNEZ - History obtained from History obtained from: Patient - History of Present Illness Timing - onset: Today Timing - details: Gradual onset Pain level now: 8 Worst headache ever?: No: Worst headache ever? Location: Left Quality: Throbbing Associated symptoms: Nausea. No: Fever, Stiff neck, Vomiting, Weakness, Numbness, Vision changes Improved by: Rest, Dark room, Quiet Worsened by: Light, Noise, Moving Contributing factors: No: Anticoagulated, Recent illness, Trauma Similar symptoms before: Diagnosis (similar to previous migraine headaches) - Additional information Additional information: c/o headache typical for her migraine headaches, left-sided, started several hours ago (last night). She says she has no migraine medication at home and no PMD "so I come in here when I get one". Review of Systems Constitutional: denies: Fever, Chills, Sweats Eyes: reports: Photophobia. denies: Loss of vision, Decreased vision Cardiac: reports: Reviewed and negative Respiratory: reports: Reviewed and negative GI: reports: Nausea. denies: Abdominal Pain, Vomiting Musculoskeletal: denies: Neck pain Neurologic: reports: Headache. 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 : None HEENT: None Psych: Depression, Anxiety, Schizophrenia Musculoskeletal: None, Chronic back pain Derm: None - Past Surgical History Past Surgical History: Yes Derm: Skin grafts - Present Medications Home Medications: Ambulatory Orders Medication Instructions Recorded Confirmed Sumatriptan Succinate [Imitrex] 6 mg SQ ONCE PRN #5 units 04/21/19 Naproxen 375 mg PO BID #20 tablet 06/21/19 Promethazine [Phenergan] 25 mg PO Q6H PRN #10 tab 06/21/19 Sumatriptan Succinate [Imitrex] 6 mg SQ ONCE PRN #5 units 06/21/19 Ondansetron Odt [Zofran] 4 mg TL Q6H PRN #10 tablet 08/08/19 Sumatriptan Succinate [Imitrex] 6 mg SQ DAILY PRN #6 cartridge 08/08/19 - Allergies Allergies/Adverse Reactions: Allergies Allergy/AdvReac Type Severity Reaction Status Date / Time Sulfa (Sulfonamide Allergy Intermediate Edema Verified 06/21/19 19:48 Antibiotics) - Social History Does the pt smoke?: Yes Smoking Status: Current every day smoker Does the pt drink ETOH?: Yes Does the pt have substance abuse?: No - Immunizations Immunizations are current?: Yes - POLST Patient has POLST: No PD ED PE NORMAL - Vitals Vital signs reviewed: Yes - General General: Alert and oriented X 3, Well developed/nourished, Other (appears uncomfortable, lying on stretcher in dark room (lights are off for patient comfort at her request)) - HEENT HEENT: PERRL, EOMI - Neck Neck: Supple, no meningeal sign - Cardiac Cardiac: RRR, No murmur - Respiratory Respiratory: No respiratory distress, Clear bilaterally - Neuro Neuro: Alert and oriented X 3, instant potato processor 2-12 intact, No motor deficit, No sensory deficit, Normal speech Eye Opening: Spontaneous Motor: Obeys Commands Verbal: Oriented GCS Score: 15 Results - Vitals Vitals: Vital Signs - 24 hr 08/08/19 04:02 Temperature 37 C Heart Rate 83 Respiratory 18 Rate Blood Pressure 169/86 H O2 Saturation 96 Oxygen O2 Source Room air PD MEDICAL DECISION MAKING - ED course Complexity details: reviewed old records, re-evaluated patient, considered differential, d/w patient ED course: as with previous visits, patient reported adequate relief after 6mg SQ imitrex, 30mg IM toradol, and 4mg TL zofran. Departure - Departure Disposition: 01 Home, Self Care Clinical Impression: Migraine Qualifiers: Migraine type: unspecified Status migrainosus presence: with status migrainosus Intractability: not intractable Qualified Code(s): G43.901 - Migraine, unspecified, not intractable, with status migrainosus Condition: Good Instructions: Imitrex, ED Headache Migraine Prescriptions: Ondansetron Odt [Zofran] 4 mg TL Q6H PRN #10 tablet PRN Reason: Nausea / Vomiting Sumatriptan Succinate [Imitrex] 6 mg SQ DAILY PRN #6 cartridge PRN Reason: Migraine Discharge Date/Time: 08/08/19 05:04
[2019-08-08 04:05] VITALS: BP 169/86
[2019-08-08] MEDS ORDERED: SUMAtriptan 6 MG/0.5 ML VIAL SUBQ STA (04:19)
[2019-08-08] MEDS ORDERED: ONDANSETRON ODT 4 MG TABLET TL STA (04:19)
[2019-08-08] MEDS ORDERED: KETOROLAC 30 MG/ML VIAL IM STA (04:19)
== END 2019-08-08 05:04 | disposition home or self-care (01) ==
LOC: ED 03:56
DX: G43.901 Migraine, unspecified, not intractable, with status migrainosus (principal); F17.200 Nicotine dependence, unspecified, uncomplicated
CPT/HCPCS: 96372; 99283; 99284; Q0162

== ENCOUNTER 2019-10-12 08:47 | Outpatient (CLI) | payer MEDICAID | END 2019-10-12 08:48 | disposition critical access hospital (66) | LOC: EMS 08:47 | PROVIDERS: ATTEND Surgery | DX: R53.1 Weakness (principal); R20.9 Unspecified disturbances of skin sensation | CPT/HCPCS: A0425; A0429; A0999 ==

== ENCOUNTER 2019-10-12 09:07 | Emergency (ER) | payer MEDICAID ==
--- NOTE | 2019-10-12 09:20 | ED Physician Documentation ---
History of Present Illness - Stated complaint Stated Complaint: NUMBNESS - History obtained from History obtained from: Patient - History of Present Illness Timing: Today Pain level max: 0 Pain level now: 0 - Additonal information Additional information: Patient is a 54-year-old female who presents to the emergency department stating that she felt tingling in her right face earlier. She also had a heaviness in both of her arms. No numbness. She was working in the garden yesterday. Nothing makes it better or worse. Was seen here recently for similar symptoms. 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 : None HEENT: None Psych: Depression, Anxiety, Schizophrenia Musculoskeletal: None, Chronic back pain Derm: None - Past Surgical History Past Surgical History: Yes Derm: Skin grafts - Present Medications Home Medications: Ambulatory Orders Medication Instructions Recorded Confirmed Sumatriptan Succinate [Imitrex] 6 mg SQ ONCE PRN #5 units 04/21/19 Naproxen 375 mg PO BID #20 tablet 06/21/19 Promethazine [Phenergan] 25 mg PO Q6H PRN #10 tab 06/21/19 Sumatriptan Succinate [Imitrex] 6 mg SQ ONCE PRN #5 units 06/21/19 Ondansetron Odt [Zofran] 4 mg TL Q6H PRN #10 tablet 08/08/19 Sumatriptan Succinate [Imitrex] 6 mg SQ DAILY PRN #6 cartridge 08/08/19 Cyclobenzaprine [Flexeril] 10 mg PO TID PRN #20 tablet 10/07/19 Sumatriptan Succinate [Imitrex] 6 mg SQ ONCE PRN #5 cartridge 10/07/19 traMADol [Ultram] 50 - 100 mg PO Q6H PRN #20 tablet 10/07/19 - Allergies Allergies/Adverse Reactions: Allergies Allergy/AdvReac Type Severity Reaction Status Date / Time Sulfa (Sulfonamide Allergy Intermediate Edema Verified 10/12/19 09:19 Antibiotics) - Social History Does the pt smoke?: Yes Smoking Status: Current every day smoker Does the pt drink ETOH?: Yes Does the pt have substance abuse?: No - Immunizations Immunizations are current?: Yes - POLST Patient has POLST: No PD ED PE NORMAL - Vitals Vital signs reviewed: Yes - General General: Alert and oriented X 3, No acute distress, Well developed/nourished - HEENT HEENT: PERRL, Ears normal, Moist mucous membranes, Pharynx benign - Neck Neck: Supple, no meningeal sign, No bony TTP, No JVD, No bruit - Cardiac Cardiac: RRR, No murmur, Strong equal pulses - Respiratory Respiratory: No respiratory distress, Clear bilaterally - Abdomen Abdomen: Soft, Non tender, Non distended - Back Back: No spinal TTP - Derm Derm: Warm and dry - Neuro Neuro: Alert and oriented X 3, 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, No motor deficit, No sensory deficit, Normal speech - Psych Psych: Normal mood, Normal affect Results - Vitals Vitals: Vital Signs - 24 hr 10/12/19 09:16 Temperature 36.8 C Heart Rate 86 Respiratory 16 Rate Blood Pressure 154/98 H O2 Saturation 99 Oxygen O2 Source Room air - Labs Labs: Laboratory Tests 10/12/19 10/12/19 09:55 09:55 WBC 6.9 RBC 4.48 Hgb 13.7 Hct 41.7 MCV 93.1 MCH 30.6 MCHC 32.9 RDW 12.4 Plt Count 295 MPV 9.7 Neut # (Auto) 3.5 Lymph # (Auto) 2.6 [place] # (Auto) 0.5 Eos # (Auto) 0.3 Baso # (Auto) 0.1 Absolute Nucleated RBC 0.00 Nucleated RBC % 0.0 Sodium 139 Potassium 3.8 Chloride 105 Carbon Dioxide 24 Anion Gap 10.0 BUN 13 Creatinine 0.8 Estimated GFR (MDRD) 74 L Glucose 135 H Calcium 8.5 Total Bilirubin 0.3 AST 19 ALT 21 Alkaline Phosphatase 82 Total Protein 7.2 Albumin 3.8 Globulin 3.4 Albumin/Globulin Ratio 1.1 Lipase 33 PD MEDICAL DECISION MAKING - ED course Complexity details: reviewed results, re-evaluated patient, considered differential, d/w patient ED course: Patient with paresthesias of bilateral upper extremities and the right side of the face. She has been seen here recently for similar complaints. Likely that this represents a cervical radiculopathy. No objective findings on the examin ation. She was reluctant to have an IV placed, this was placed after discussion and a CT angiogram was ordered. Patient attempted to elope from the emergency department with her IV in place, therefore the IV was removed. After discussion she did not want any further testing and did not want the IV replaced. We will have her follow-up with her doctor for further care. Patient counseled regardi ng signs and symptoms for which I believe and urgent re-evaluation would be necessary. Patient with good understanding of and agreement to plan and is comfortable going home at this time This document was made in part using voice recognition software. While efforts are made to proofread this document, sound alike and grammatical errors may occur. Departure - Departure Disposition: 01 Home, Self Care Clinical Impression: Paresthesia Condition: Good Instructions: ED Paraesthesias Follow-Up: Your,doctor in 1 week [Other] Comments: Follow-up with your doctor for further care. Return if you worsen. This is likely coming from your neck. Discharge Date/Time: 10/12/19 10:50 NIHSS - Time Time: 09:20 - Level of Consciousness Level of consciousness: (0) Alert, Keenly responsive LOC Questions: (0) Answers both Q's correct LOC Commands: (0) Performs both correctly - Gaze Best Gaze: (0) Normal - Visual Visual: (0) No loss - Facial Palsy Facial Palsy: (0) Normal, symmetrical movement - Motor Arms (both separate) Motor Arm (right): (0) No drift Motor Arm (left): (0) No drift - Motor Legs (both separate) Motor Leg (right): (0) No drift Motor Leg (left): (0) No drift - Limb Ataxia Limb Ataxia: (0) Absent - Sensory Sensory: (0) Normal - Best Language Best Language: (0) No aphasia - Dysarthria Dysarthria: (0) Normal - Extinction and Inattention (formally neg Extinction and inattention: (0) No abnormality - Total Score/Results Total Score/Result: 0
[2019-10-12 09:21] VITALS: BP 154/98
[2019-10-12] MEDS ORDERED: IOVERSOL 320 100 ML VIAL IVP ONE (09:30)
[2019-10-12 10:01] LABS: BASOPHILS # (AUTO) 0.1 10^3/uL (0.0-0.1); EOSINOPHILS # (AUTO) 0.3 10^3/uL (0.0-0.7); EOSINOPHILS % (AUTO) 4.5 %; HGB - HEMOGLOBIN 13.7 g/dL (12.0-16.0); LYMPHOCYTES # (AUTO) 2.6 10^3/uL (1.5-3.5); MEAN CORPUSCULAR HEMOGLOBIN 30.6 pg (27.0-31.0); MEAN CORPUSCULAR HGB CONC 32.9 g/dL (32.0-36.0); MEAN CORPUSCULAR VOLUME 93.1 fL (81.0-99.0); MEAN PLATELET VOLUME 9.7 fL (7.9-10.8); MONOCYTES # (AUTO) 0.5 10^3/uL (0.0-1.0); MONOCYTES % (AUTO) 6.5 %; NEUTROPHILS # (AUTO) 3.5 10^3/uL (1.5-6.6); NEUTROPHILS % (AUTO) 49.7 %; PLT - PLATELET COUNT 295 10^3/uL (130-450); RED BLOOD COUNT 4.48 10^6/uL (4.20-5.40); RED CELL DISTRIBUTION WIDTH 12.4 % (12.0-15.0); WHITE BLOOD COUNT 6.9 x10^3/uL (4.8-10.8)
[2019-10-12 10:15] LABS: ALBUMIN 3.8 g/dL (3.2-5.5); ALBUMIN/GLOBULIN RATIO 1.1 (1.0-2.2); BILIRUBIN,TOTAL 0.3 mg/dL (0.2-1.0); CALCIUM 8.5 mg/dL (8.5-10.3); CREATININE 0.8 mg/dL (0.4-1.0); TOTAL PROTEIN 7.2 g/dL (6.7-8.2)
== END 2019-10-12 10:50 | disposition home or self-care (01) ==
LOC: EDUNIT# → ED 09:07
DX: R20.2 Paresthesia of skin (principal); F17.200 Nicotine dependence, unspecified, uncomplicated
CPT/HCPCS: 36415; 80053; 83690; 85025; 99283; 99284

== ENCOUNTER 2020-03-22 03:13 | Emergency (ER) | payer MEDICAID ==
[2020-03-22 03:23] VITALS: BP 139/73
[2020-03-22] MEDS ORDERED: SUMAtriptan 25 MG TABLET PO STA (03:34)
[2020-03-22] MEDS ORDERED: SUMAtriptan 6 MG/0.5 ML VIAL SUBQ STA (03:44)
[2020-03-22] MEDS ORDERED: ACETAMINOPHEN 325 MG TABLET PO STA ×2 (03:45→04:01)
[2020-03-22] MEDS ORDERED: METOCLOPRAMIDE 10 MG TABLET PO STA (03:46)
--- NOTE | 2020-03-22 03:53 | ED Physician Documentation ---
History of Present Illness - Stated complaint Stated Complaint: HEAD PX - Chief complaint Chief Complaint: Heent - History obtained from History obtained from: Patient - Additonal information Additional information: 55-year-old woman with history of chronic migraines, methamphetamine abuse presents with bilateral frontal "100 out of 10" headache waking her from sleep this past evening. pt states this is like her prior migraines and she usually takes imitrex but ran out at home. Denies fevers, neck pain, fnd. +nausea but no vomiting. States she last did meth during the day yesterday. 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 HEENT: None Psych: Depression, Anxiety, Schizophrenia Musculoskeletal: None, Chronic back pain Derm: None - Past Surgical History Past Surgical History: Yes Derm: Skin grafts - Allergies Allergies/Adverse Reactions: Allergies Allergy/AdvReac Type Severity Reaction Status Date / Time Sulfa (Sulfonamide Allergy Intermediate Edema Verified 03/22/20 03:23 Antibiotics) - Social History Does the pt smoke?: Yes Smoking Status: Current every day smoker Does the pt drink ETOH?: Yes Does the pt have substance abuse?: No - Immunizations Immunizations are current?: Yes - POLST Patient has POLST: No PD ED PE NORMAL - Vitals Vital signs reviewed: Yes - General General: Alert and oriented X 3, Other (curled up in bed, clutching head. after imitrex shot, sitting up, visibly more comfortable and conversant. 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 good eye contact. some flight of ideas) Results - Vitals Vitals: Vital Signs - 24 hr 03/22/20 03/22/20 03:20 03:23 Temperature 36.0 C L 36 C L Heart Rate 81 81 Respiratory 22 22 Rate Blood Pressure 139/73 H 139/73 H O2 Saturation 99 99 Oxygen O2 Source Room air PD MEDICAL DECISION MAKING - ED course Complexity details: reviewed old records, re-evaluated patient, d/w patient ED course: 55-year-old woman with history of migraine headache as well as methamphetamine abuse presents with severe headache waking for her from sleep this past evening. Headache resolved with IM Imitrex, oral Reglan and Tylenol. Patient had head CT but then walked out before the official read was done. Wet read by emergency physician grossly negative for acute bleed. Departure - Departure Disposition: ED Elope Clinical Impression: Headache Condition: Stable
--- NOTE | 2020-03-22 07:26 | CT Report ---
PROCEDURE: HEAD WO INDICATIONS: severe sudden onset headache waking from sleep TECHNIQUE: Noncontrast 4.5 mm thick angled axial sections acquired from the foramen magnum to the vertex. For r adiation dose reduction, the following was used: automated exposure control, adjustment of mA and/or kV according to patient size. COMPARISON: None. FINDINGS: Image quality: Excellent. CSF spaces: Basal cisterns are patent. No extra-axial fluid collections. Ventricles are normal in size and shape. Brain: No midline shift. No intracranial masses or hemorrhage. [place]-white matter interface is norm al. Skull and face: Calvarium and visualized facial bones are intact, without suspicious lesions. Sinuses: Visualized sinuses and mastoids are clear. IMPRESSION: No acute intracranial disease process. Reviewed by: Estrellita Galicia MD, PhD on 03/22/2020 7:24 AM PST Approved by: Estrellita Galicia MD, PhD on 03/22/2020 7:24 AM [facility] Station ID: [id number]
== END 2020-03-22 05:00 | disposition left against medical advice (07) ==
LOC: ED 03:13
DX: R51.9 Headache, unspecified (principal); R11.0 Nausea; F15.10 Other stimulant abuse, uncomplicated; Z86.69 Personal history of other diseases of the nervous system and sense organs; F17.200 Nicotine dependence, unspecified, uncomplicated
CPT/HCPCS: 70450; 96372; 99284; A9270

== ENCOUNTER 2020-04-29 14:50 | Outpatient (CLI) | payer MEDICAID | END 2020-04-29 23:59 | disposition home or self-care (01) | LOC: COV 14:50 | PROVIDERS: ATTEND Family Medicine | DX: Z20.828 Contact with and (suspected) exposure to other viral communicable diseases (principal) ==

== ENCOUNTER 2020-05-26 14:16 | Emergency (ER) | payer MEDICAID ==
[2020-05-26 14:23] VITALS: BP 160/90
--- NOTE | 2020-05-26 14:27 | ED Physician Documentation ---
PD HPI HEADACHE - Stated complaint Stated Complaint: MIGRAINE - Chief complaint Chief Complaint: Neuro - History obtained from History obtained from: Patient - History of Present Illness Timing - onset: Today Timing - onset during: Light activity Timing - duration: Hours Timing - details: Abrupt onset, Still present Worst headache ever?: No: Worst headache ever? Location: Front, Left Quality: Throbbing, Aching Improved by: Other (She usually uses Imitrex and nausea medicine for her migraines. She states it is the injectable Imitrex. She did not have any medicines available and so is here for evaluation. 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 HEENT: None Psych: Depression, Anxiety, Schizophrenia Musculoskeletal: None, Chronic back pain Derm: None - Past Surgical History Past Surgical History: Yes Derm: Skin grafts - Present Medications Home Medications: Ambulatory Orders Medication Instructions Recorded Confirmed Prochlorperazine [Compazine] 5 - 10 mg PO Q6H PRN #12 tablet 05/26/20 Sumatriptan Succinate [Imitrex] 6 mg SQ BID PRN #3 units 05/26/20 Sumatriptan Succinate [Imitrex] 50 mg PO BID PRN #5 tablet 05/26/20 - Allergies Allergies/Adverse Reactions: Allergies Allergy/AdvReac Type Severity Reaction Status Date / Time Sulfa (Sulfonamide Allergy Intermediate Edema Verified 05/26/20 14:19 Antibiotics) - Social History Does the pt smoke?: Yes Smoking Status: Current every day smoker Does the pt drink ETOH?: Yes Does the pt have substance abuse?: No - Immunizations Immunizations are current?: Yes - POLST Patient has POLST: No PD ED PE NORMAL - Vitals Vital signs reviewed: Yes - General General: Alert and oriented X 3, Well developed/nourished, Other (seems uncomfortable, lying face down with blanket over her to block light. Room light is off. ) - HEENT HEENT: Atraumatic, Pharynx benign - Neck Neck: Supple, no meningeal sign, No adenopathy - Derm Derm: Normal color, Warm and dry - Neuro Neuro: Alert and oriented X 3, digital coordinator 2-12 intact, No motor deficit, No sensory deficit, Normal speech Eye Opening: Spontaneous Motor: Obeys Commands Verbal: Oriented GCS Score: 15 Results - Vitals Vitals: Vital Signs - 24 hr 05/26/20 14:19 Temperature 36.6 C Heart Rate 90 Respiratory 16 Rate Blood Pressure 160/90 H O2 Saturation 98 Oxygen O2 Source Room air PD MEDICAL DECISION MAKING - ED course Complexity details: re-evaluated patient (improved after meds. ), considered differential, d/w patient Departure - Departure Disposition: 01 Home, Self Care Clinical Impression: Migraine Qualifiers: Migraine type: unspecified Status migrainosus presence: without status migrainosus Intractability: not intractable Qualified Code(s): G43.909 - Migraine, unspecified, not intractable, without status migrainosus Condition: Stable Record reviewed to determine appropriate education?: Yes Instructions: ED Headache Migraine Prescriptions: Prochlorperazine [Compazine] 5 - 10 mg PO Q6H PRN #12 tablet PRN Reason: Nausea / Vomiting Sumatriptan Succinate [Imitrex] 50 mg PO BID PRN #5 tablet PRN Reason: Migraine Sumatriptan Succinate [Imitrex] 6 mg SQ BID PRN #3 units PRN Reason: Migraine Comments: Stay well-hydrated. Tylenol or ibuprofen if needed for mild headache still. For subsequent migraines, use the sumatriptan orally (if not vomiting) or injection (if vomiting) along with the Compazine for nausea. Follow-up with your primary care regarding further prescriptions and treatment. Discharge Date/Time: 05/26/20 15:37
[2020-05-26] MEDS ORDERED: IBUPROFEN 600 MG TABLET PO STA (14:36)
[2020-05-26] MEDS ORDERED: PROMETHAZINE 25 MG/1 ML VIAL IM STA (14:36)
[2020-05-26] MEDS ORDERED: SUMAtriptan 6 MG/0.5 ML VIAL SUBQ STA (14:36)
== END 2020-05-26 15:37 | disposition home or self-care (01) ==
LOC: ED 14:16
DX: G43.909 Migraine, unspecified, not intractable, without status migrainosus (principal); F17.200 Nicotine dependence, unspecified, uncomplicated
CPT/HCPCS: 96372; 99283; 99284; A9270

== ENCOUNTER 2020-07-19 06:10 | Emergency (ER) | payer MEDICAID ==
--- NOTE | 2020-07-19 07:13 | ED Physician Documentation ---
PD HPI HEADACHE - Stated complaint Stated Complaint: HEAD PX - Chief complaint Chief Complaint: General - History obtained from History obtained from: Patient - History of Present Illness Timing - onset: Enter time (1800), Yesterday Timing - onset during: Rest Timing - duration: Days (1) Timing - details: Gradual onset, Still present Location: Back, Right Quality: Throbbing Associated symptoms: Stiff neck, Nausea. No: Fever, Vomiting, Weakness, Numbness Improved by: Rest, Dark room Worsened by: Light, Noise, Moving Contributing factors: No: Anticoagulated Similar symptoms before: Diagnosis (migraine) Recently seen: Not recently seen - Additional information Additional information: 55-year-old female with a history of migraine headaches is a typical onset of a migraine headache yesterday she has pain in the back of her neck on the right side photophobia and nausea she has not had any vomiting and she usually gets relief of her headache with sumatriptan. She is out. Review of Systems Constitutional: denies: Fever Eyes: reports: Photophobia. denies: Decreased vision Ears: denies: Ear pain Nose: denies: Rhinorrhea / runny nose, Congestion Throat: denies: Sore throat Cardiac: denies: Chest pain / pressure, Palpitations Respiratory: denies: Dyspnea, Cough GI: reports: Nausea. 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 HEENT: None Psych: Depression, Anxiety, Schizophrenia Musculoskeletal: None, Chronic back pain Derm: None - Past Surgical History Past Surgical History: Yes Derm: Skin grafts - Present Medications Home Medications: Ambulatory Orders Medication Instructions Recorded Confirmed Prochlorperazine [Compazine] 5 - 10 mg PO Q6H PRN #12 tablet 05/26/20 07/19/20 Sumatriptan Succinate [Imitrex] 6 mg SQ BID PRN #3 units 05/26/20 07/19/20 Sumatriptan Succinate [Imitrex] 50 mg PO BID PRN #5 tablet 05/26/20 07/19/20 Sumatriptan Inj [Imitrex Inj] 6 mg SUBQ BID PRN #3 ml 07/19/20 - Allergies Allergies/Adverse Reactions: Allergies Allergy/AdvReac Type Severity Reaction Status Date / Time Sulfa (Sulfonamide Allergy Intermediate Edema Verified 07/19/20 06:19 Antibiotics) - Social History Does the pt smoke?: Yes Smoking Status: Current every day smoker Does the pt drink ETOH?: No Does the pt have substance abuse?: No - Immunizations Immunizations are current?: Yes - POLST Patient has POLST: No PD ED PE NORMAL - Vitals Vital signs reviewed: Yes (Hypertensive) - General General: Alert and oriented X 3, Well developed/nourished, Other (55-year-old female laying in a darkened room quiet with her eyes closed answers appropriately.) - HEENT HEENT: Atraumatic, PERRL, EOMI - Neck Neck: Supple, no meningeal sign, No bony TTP - Cardiac Cardiac: RRR, No murmur - Respiratory Respiratory: No respiratory distress, Clear bilaterally - Abdomen Abdomen: Normal bowel sounds, Soft, Non tender, Non distended, No organomegaly - Back Back: No CVA TTP, No spinal TTP - Derm Derm: Normal color, Warm and dry, No rash - Extremities Extremities: No deformity, No edema - Neuro Neuro: Alert and oriented X 3, 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 Departure - Departure Disposition: 01 Home, Self Care Clinical Impression: Migraine Qualifiers: Migraine type: with aura Status migrainosus presence: without status migrainosus Intractability: not intractable Qualified Code(s): G43.109 - Migraine with aura, not intractable, without status migrainosus Condition: Stable Instructions: ED Headache Migraine Follow-Up: [facility] [Provider Group] Prescriptions: Sumatriptan Inj [Imitrex Inj] 6 mg SUBQ BID PRN #3 ml PRN Reason: Migraine Discharge Date/Time: 07/19/20 08:16
[2020-07-19] MEDS ORDERED: SUMAtriptan 6 MG/0.5 ML VIAL SUBQ STA (07:16)
[2020-07-19 08:17] VITALS: BP 168/100
== END 2020-07-19 08:16 | disposition home or self-care (01) ==
LOC: ED 06:10
DX: G43.109 Migraine with aura, not intractable, without status migrainosus (principal); F17.200 Nicotine dependence, unspecified, uncomplicated
CPT/HCPCS: 96372; 99283; 99284

== ENCOUNTER 2020-09-05 17:41 | Outpatient (CLI) | payer MEDICAID ==
--- NOTE | 2020-09-06 09:08 | XRAY Report ---
PROCEDURE: Clavicle RT INDICATIONS: CLAVICLE PAIN, RIGHT TECHNIQUE: 2 views of the clavicle were acquired. COMPARISON: Right clavicle radiographs 12/04/2017 FINDINGS: Bones: There is a mildly displaced fracture of the distal clavicular shaft with mild overriding of fr acture fragments and superior displacement of the proximal fragment by approximately one half shaft w idth. Mild sclerosis at the right clavicular head is not optimally evaluated, but may be related to s ternoclavicular osteoarthrosis. No suspicious bony lesions. Mild to moderate acromioclavicular joint osteoarthrosis. Soft tissues: No suspicious soft tissue calcifications. IMPRESSION: 1. Mildly displaced fracture of the right distal clavicular shaft. 2. Nonspecific sclerosis of the right clavicular head is not well evaluated due to overlapping struc tures, but may be related to sternoclavicular osteoarthrosis or prior trauma, among other etiologies. Further evaluation if with clavicle CT may be obtained if indicated clinically. Reviewed by: Claude Reyna MD on 09/06/2020 9:07 AM PDT Approved by: Claude Reyna MD on 09/06/2020 9:07 AM PDT Station ID: [id number]
== END 2020-09-05 23:59 | disposition home or self-care (01) ==
LOC: DI.N 17:41
PROVIDERS: ATTEND Emergency Medicine
DX: M89.8X8 Other specified disorders of bone, other site (principal); S42.031A Displaced fracture of lateral end of right clavicle, initial encounter for closed fracture; M19.011 Primary osteoarthritis, right shoulder

== ENCOUNTER 2020-11-07 08:00 | Outpatient (CLI) | payer MEDICAID ==
[2020-11-07 23:54] LABS: BACTERIAL VAGINOSIS DNA NEGATIVE (NEGATIVE); CANDIDA GLABRATA DNA NEGATIVE (NEGATIVE); CANDIDA GROUP DNA NEGATIVE (NEGATIVE); CANDIDA KRUSEI DNA NEGATIVE (NEGATIVE); TRICHOMONAS VAGINALIS DNA NEGATIVE (NEGATIVE)
[2020-11-08 00:27] LABS: CHLAMYDIA TRACHOMATIS DNA NEGATIVE (NEGATIVE); NEISSERIA GONORRHOEAE DNA NEGATIVE (NEGATIVE); TRICHOMONAS VAGINALIS DNA NEGATIVE (NEGATIVE)
== END 2020-11-07 23:59 | disposition home or self-care (01) ==
LOC: LAB.N 08:00
PROVIDERS: ATTEND Family Medicine
DX: R10.2 Pelvic and perineal pain (principal); G89.29 Other chronic pain
CPT/HCPCS: 87086; 87491; 87591; 87661; 87801

== ENCOUNTER 2020-11-28 08:52 | Emergency (ER) | payer MEDICAID ==
[2020-11-28 09:24] VITALS: BP 136/68
[2020-11-28] MEDS ORDERED: KETOROLAC 15 MG/ML VIAL IM STA (10:49)
[2020-11-28] MEDS ORDERED: SUMAtriptan 6 MG/0.5 ML VIAL SUBQ STA (10:49)
[2020-11-28] MEDS ORDERED: CYCLOBENZAPRINE 10 MG TABLET PO STA (10:49)
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
== END 2020-11-28 11:39 | disposition home or self-care (01) ==
LOC: ED 08:52
DX: M54.2 Cervicalgia (principal); F17.200 Nicotine dependence, unspecified, uncomplicated
CPT/HCPCS: 96372; 99283; A9270

== ENCOUNTER 2020-12-09 08:00 | Outpatient (CLI) | payer MEDICAID ==
[2020-12-09 21:15] LABS: HCT - HEMATOCRIT 42.5 % (37.0-47.0); HGB - HEMOGLOBIN 13.7 g/dL (12.0-16.0); MEAN CORPUSCULAR HEMOGLOBIN 29.8 pg (27.0-31.0); MEAN CORPUSCULAR HGB CONC 32.2 g/dL (32.0-36.0); MEAN CORPUSCULAR VOLUME 92.4 fL (81.0-99.0); MEAN PLATELET VOLUME 10.7 fL (7.9-10.8); RED BLOOD COUNT 4.6 10^6/uL (4.20-5.40); RED CELL DISTRIBUTION WIDTH 12.5 % (12.0-15.0); RHEUMATOID FACTOR NEGATIVE (Negative); WHITE BLOOD COUNT 8.1 x10^3/uL (4.8-10.8)
[2020-12-09 21:16] LABS: CRP - C-REACTIVE PROTEIN < 1.0 mg/dL (0-1.0); URIC ACID 5.1 mg/dL (2.6-7.2)
[2020-12-09 22:29] LABS: BACTERIAL VAGINOSIS DNA NEGATIVE (NEGATIVE); CANDIDA GLABRATA DNA NEGATIVE (NEGATIVE); CANDIDA GROUP DNA NEGATIVE (NEGATIVE); CANDIDA KRUSEI DNA NEGATIVE (NEGATIVE); TRICHOMONAS VAGINALIS DNA NEGATIVE (NEGATIVE)
[2020-12-12 14:56] LABS: ANA SCREEN NEGATIVE (NEGATIVE)
[2020-12-12 18:40] LABS: DNA (DS) ANTIBODY 1 IU/mL
[2020-12-12 21:21] LABS: CYCLIC CITRULL PEPTIDE CCP IGG <16 UNITS
== END 2020-12-09 23:59 | disposition home or self-care (01) ==
LOC: LAB.N 08:00
PROVIDERS: ATTEND Family Medicine
DX: M19.90 Unspecified osteoarthritis, unspecified site (principal); N76.0 Acute vaginitis
CPT/HCPCS: 36415; 84550; 85027; 85651; 86038; 86140; 86200; 86225; 86430; 87661; 87801

== ENCOUNTER 2021-02-26 08:00 | Outpatient (CLI) | payer MEDICAID ==
[2021-02-26 21:15] LABS: BILIRUBIN,URINE NEGATIVE (NEGATIVE); CLARITY,URINE CLEAR (CLEAR); GLUCOSE, URINE (UA) NEGATIVE (NEGATIVE); KETONES,URINE (UA) NEGATIVE (NEGATIVE); LEUKOCYTE ESTERASE, URINE NEGATIVE (NEGATIVE); NITRITE,URINE NEGATIVE (NEGATIVE); OCCULT BLOOD,URINE NEGATIVE (NEGATIVE); PH,URINE 6.5 PH (5.0-7.5); PROTEIN,URINE NEGATIVE (NEGATIVE); UROBILINOGEN,URINE 2 E.U./dL (NORMAL)
[2021-02-26 21:19] LABS: RBC,URINE 0-5 /HPF (0-5); WBC,URINE 0-3 /HPF (0-5)
[2021-02-26 21:20] LABS: BACTERIA,URINE Rare /HPF (None Seen); CRYSTALS,URINE 11-25 Ca Oxalate /LPF; SQUAMOUS EPITHELIAL CELL,UR FEW Squamous (<= Few)
[2021-02-27 00:30] LABS: BACTERIAL VAGINOSIS DNA NEGATIVE (NEGATIVE); CANDIDA GLABRATA DNA NEGATIVE (NEGATIVE); CANDIDA GROUP DNA NEGATIVE (NEGATIVE); CANDIDA KRUSEI DNA NEGATIVE (NEGATIVE); TRICHOMONAS VAGINALIS DNA NEGATIVE (NEGATIVE)
[2021-02-27 01:46] LABS: CHLAMYDIA TRACHOMATIS DNA NEGATIVE (NEGATIVE); NEISSERIA GONORRHOEAE DNA NEGATIVE (NEGATIVE); TRICHOMONAS VAGINALIS DNA NEGATIVE (NEGATIVE)
== END 2021-02-26 23:59 | disposition home or self-care (01) ==
LOC: LAB 08:00
PROVIDERS: ATTEND Nurse Practitioner
DX: R10.2 Pelvic and perineal pain (principal)
CPT/HCPCS: 81001; 87086; 87491; 87591; 87661; 87801

== ENCOUNTER 2021-03-02 05:26 | Emergency (ER) | payer MEDICAID ==
[2021-03-02 05:49] VITALS: BP 119/71
[2021-03-02 06:45] LABS: BASOPHILS # (AUTO) 0.1 10^3/uL (0.0-0.1); BASOPHILS % (AUTO) 0.4 %; EOSINOPHILS # (AUTO) 0.1 10^3/uL (0.0-0.7); EOSINOPHILS % (AUTO) 0.7 %; HCT - HEMATOCRIT 39.3 % (37.0-47.0); HGB - HEMOGLOBIN 12.8 g/dL (12.0-16.0); LYMPHOCYTES # (AUTO) 2.2 10^3/uL (1.5-3.5); LYMPHOCYTES % (AUTO) 18.6 %; MEAN CORPUSCULAR HEMOGLOBIN 30.2 pg (27.0-31.0); MEAN CORPUSCULAR HGB CONC 32.6 g/dL (32.0-36.0); MEAN CORPUSCULAR VOLUME 92.7 fL (81.0-99.0); MEAN PLATELET VOLUME 9.6 fL (7.9-10.8); MONOCYTES % (AUTO) 7.9 %; NEUTROPHILS # (AUTO) 8.7 10^3/uL (1.5-6.6); NEUTROPHILS % (AUTO) 72.1 %; PLT - PLATELET COUNT 288 10^3/uL (130-450); RED BLOOD COUNT 4.24 10^6/uL (4.20-5.40); RED CELL DISTRIBUTION WIDTH 12.4 % (12.0-15.0); WHITE BLOOD COUNT 12.1 x10^3/uL (4.8-10.8)
[2021-03-02 07:01] LABS: ALBUMIN 3.8 g/dL (3.2-5.5); BILIRUBIN,TOTAL 0.8 mg/dL (0.2-1.0); CALCIUM 8.4 mg/dL (8.5-10.3); CREATININE 0.7 mg/dL (0.4-1.0); POTASSIUM 3.7 mmol/L (3.5-5.0); TOTAL PROTEIN 7.5 g/dL (6.7-8.2)
--- NOTE | 2021-03-02 07:38 | ED Physician Documentation ---
History of Present Illness - Stated complaint Stated Complaint: CHEST PX/N/V - Chief complaint Chief Complaint: Cardiac - History obtained from History obtained from: Patient - History of Present Illness Timing: How many weeks ago (3) Pain level max: 7 Pain level now: 5 - Additonal information Additional information: Patient is a 56-year-old female, fully vaccinated against Covid. Presents with several days of cough, congestion. Had nausea last night. No vomiting. No diarrhea. No abdominal pain. She also complains that sometimes her right shoulder and right wrist hurt. Does not recall any specific injury. No fevers. No chills. The shoulder and wrist pain are worse with movement and better with rest. She does smoke. No respiratory difficulty. Review of Systems Constitutional: denies: Fever, Chills Cardiac: reports: Chest pain / pressure (States sometimes feels a pressure across to her chest, this is been constant for the past 2 to 3 days.). denies: Palpitations Respiratory: reports: Cough. denies: Dyspnea, Hemoptysis, Wheezing GI: reports: Nausea. 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 : None HEENT: None Psych: Depression, Anxiety, Schizophrenia Musculoskeletal: None, Chronic back pain Derm: None - Past Surgical History Past Surgical History: Yes Derm: Skin grafts - Present Medications Home Medications: Ambulatory Orders Medication Instructions Recorded Confirmed Sumatriptan Succinate [Imitrex] 6 mg SQ BID PRN #3 units 05/26/20 03/02/21 Sumatriptan Succinate [Imitrex] 50 mg PO BID PRN #5 tablet 05/26/20 03/02/21 Sumatriptan Inj [Imitrex Inj] 6 mg SUBQ BID PRN #3 ml 07/19/20 03/02/21 Benzonatate [Tessalon] 200 mg PO TID PRN #30 cap 03/02/21 Cefpodoxime Proxetil [Vantin] 100 mg PO Q12H #20 tablet 03/02/21 Doxycycline Monohydrate 100 mg PO BID #20 cap 03/02/21 - Allergies Allergies/Adverse Reactions: Allergies Allergy/AdvReac Type Severity Reaction Status Date / Time Sulfa (Sulfonamide Allergy Intermediate Edema Verified 03/02/21 05:49 Antibiotics) - Social History Does the pt smoke?: Yes Smoking Status: Current every day smoker Does the pt drink ETOH?: No Does the pt have substance abuse?: No - Immunizations Immunizations are current?: Yes - POLST Patient has POLST: No PD ED PE NORMAL - Vitals Vital signs reviewed: Yes - General General: Alert and oriented X 3, No acute distress - HEENT HEENT: PERRL, Ears normal, Moist mucous membranes, Pharynx benign - Neck Neck: Supple, no meningeal sign, No adenopathy - Cardiac Cardiac: RRR, Strong equal pulses - Respiratory Respiratory: No respiratory distress, Clear bilaterally - Abdomen Abdomen: Soft, Non tender, Non distended - Derm Derm: Warm and dry - Extremities Extremities: Other (Full range of motion of the right shoulder and right wrist, there is some discomfort during range of motion, but no limitation. Neurov ascularly intact. No deformity.) - Neuro Neuro: Alert and oriented X 3 - Psych Psych: Normal mood, Normal affect Results - Vitals Vitals: Vital Signs - 24 hr 03/02/21 05:46 Temperature 36.3 C L Heart Rate 92 Respiratory 18 Rate Blood Pressure 119/71 O2 Saturation 95 Oxygen O2 Source Room air - EKG (time done) 0534 Rate: Rate (enter#) (96) Rhythm: NSR [place]: Normal Intervals: Other (short VT) QRS: Normal Ischemia: T wave inversion (II, III, aVF, V3-5) - Labs Labs: Laboratory Tests 03/02/21 03/02/21 03/02/21 06:40 06:40 06:40 WBC 12.1 H RBC 4.24 Hgb 12.8 Hct 39.3 MCV 92.7 MCH 30.2 MCHC 32.6 RDW 12.4 Plt Count 288 MPV 9.6 Neut # (Auto) 8.7 H Lymph # (Auto) 2.2 [place] # (Auto) 1.0 Eos # (Auto) 0.1 Baso # (Auto) 0.1 Absolute Nucleated RBC 0.00 Nucleated RBC % 0.0 Sodium 134 L Potassium 3.7 Chloride 101 Carbon Dioxide 23 Anion Gap 10.0 BUN 12 Creatinine 0.7 Estimated GFR (MDRD) 86 L Glucose 177 H Calcium 8.4 L Total Bilirubin 0.8 AST 17 ALT 17 Alkaline Phosphatase 113 Troponin I High Sens 3.2 Total Protein 7.5 Albumin 3.8 Globulin 3.7 Albumin/Globulin Ratio 1.0 Lipase 30 - Rads (name of study) Right shoulder x-ray Radiology: Final report received, EMP read contemporaneously, See rad report Right wrist x-ray Radiology: Final report received, EMP read contemporaneously, See rad report Chest x-ray Radiology: Final report received, EMP read contemporaneously, See rad report PD MEDICAL DECISION MAKING - ED course Complexity details: reviewed results, re-evaluated patient, considered differential, d/w patient ED course: 56-year-old female with left lower lobe pneumonia on chest x-ray. This be consistent with her elevated white blood cell count and cough. We will place her on antibiotics for home. No hypoxia or respiratory distress. Covid test was performed. Her shoulder and wrist pain appear to be arthritis. No fractures or dislocations. Using the arm freely. Patient counseled regarding signs and symptoms for which I believe and urgent re-evaluation would be necessary. Patient with good understanding of and agreement to plan and is comfortable going home at this time This document was made in part using voice recognition software. While efforts are made to proofread this document, sound alike and grammatical errors may occur. Departure - Departure Disposition: 01 Home, Self Care Clinical Impression: Pneumonia Qualifiers: Pneumonia type: due to unspecified organism Laterality: left Lung location: lower lobe of lung Qualified Code(s): J18.9 - Pneumonia, unspecified organism Condition: Good Instructions: ED Pneumonia Adult Follow-Up: your,doctor in 1 week for recheck [Other] Prescriptions: Doxycycline Monohydrate 100 mg PO BID #20 cap Benzonatate [Tessalon] 200 mg PO TID PRN #30 cap PRN Reason: Cough Cefpodoxime Proxetil [Vantin] 100 mg PO Q12H #20 tablet Comments: Your prescriptions were sent to [facility] in [place]. Please follow-up with your doctor for further care. Please return if you worsen. Take all antibiotics until gone. This should improve with the antibiotic treatment. You have a Covid test pending. You need to self quarantine until the result is done and negative. The results should be done in 24-48 hours. We will call with a positive result, the fastest way to get a negative result for confirmation though is to go to the hospital website at [email or web address], click on the my [facility] tab and sign up for the patient portal. If any of your friends and/or family need to be tested, they can call the hospital at [phone] for an appointment to have their Covid test. Discharge Date/Time: 03/02/21 08:45
--- NOTE | 2021-03-02 07:52 | XRAY Report ---
PROCEDURE: Chest 1 View X-Ray INDICATIONS: chest pain TECHNIQUE: One view of the chest was acquired. COMPARISON: None available at time of dictation. FINDINGS: Surgical changes and devices: None. Lungs and pleura: No pleural effusions or pneumothorax. Left basilar opacity. Mediastinum: Mediastinal contours appear normal. Heart size is normal. Bones and chest wall: No suspicious bony lesions. Overlying soft tissues appear unremarkable. IMPRESSION: Left basilar opacity concerning for pneumonia in the correct clinical setting. Recommend follow-up to resolution. Reviewed by: Philip Betancourt DO on 03/02/2021 6:51 AM [facility] Approved by: Philip Betancourt DO on 03/02/2021 6:51 AM [facility] Station ID: [id number]
--- NOTE | 2021-03-02 08:12 | XRAY Report ---
PROCEDURE: Shoulder 3 View RT INDICATIONS: R shoulder pain, no known injury TECHNIQUE: 3 views of the shoulder were acquired. COMPARISON: None. FINDINGS: Bones: No fractures or dislocations. No suspicious bony lesions. Visualized ribs appear intact. Mi [id number] degenerative changes of the acromioclavicular and glenohumeral joints. Soft tissues: No suspicious soft tissue calcifications. IMPRESSION: [id number] degenerative changes of the acromion clavicular and glenohumeral joints without acut e osseous abnormality. Reviewed by: Philip Betancourt DO on 03/02/2021 7:10 AM [facility] Approved by: Philip Betancourt DO on 03/02/2021 7:10 AM [facility] Station ID: [id number]
--- NOTE | 2021-03-02 08:13 | XRAY Report ---
PROCEDURE: Wrist 4 View RT INDICATIONS: R wrist pain, no known injury TECHNIQUE: 4 views of the wrist were acquired. COMPARISON: None FINDINGS: Bones: No fractures or dislocations. No suspicious bony lesions. Mild degenerative changes of the wrist most prominent at the triscaphe and first carpometacarpal joint. Scaphoid view: No fracture. Soft tissues: No suspicious soft tissue calcifications. IMPRESSION: Mild degenerative changes of the wrist without acute osseous abnormality. Reviewed by: Philip Betancourt DO on 03/02/2021 7:12 AM [facility] Approved by: Philip Betancourt DO on 03/02/2021 7:12 AM [facility] Station ID: [id number]
== END 2021-03-02 08:45 | disposition home or self-care (01) ==
LOC: ED 05:26
DX: J18.9 Pneumonia, unspecified organism (principal); F17.200 Nicotine dependence, unspecified, uncomplicated; Z20.822 Contact with and (suspected) exposure to COVID-19
CPT/HCPCS: 36415; 80053; 83690; 84484; 85025; 93005; 99283; 99284

== ENCOUNTER 2021-04-04 01:05 | Emergency (ER) | payer MEDICAID ==
[2021-04-04] MEDS ORDERED: KETOROLAC 30 MG/ML VIAL IM STA (01:18)
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
[2021-04-04 02:14] VITALS: BP 156/92
== END 2021-04-04 02:15 | disposition home or self-care (01) ==
LOC: ED 01:05
DX: S27.69XA Other injury of pleura, initial encounter (principal); W03.XXXA Other fall on same level due to collision with another person, initial encounter; Y93.9 Activity, unspecified; Y92.512 Supermarket, store or market as the place of occurrence of the external cause; F17.200 Nicotine dependence, unspecified, uncomplicated
CPT/HCPCS: 96372; 99282; 99283

== ENCOUNTER 2021-04-05 07:59 | Emergency (ER) | payer MEDICAID ==
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
[2021-04-05] MEDS ORDERED: DEXAMETHASONE 10 MG/ML VIAL PO STA (08:36)
[2021-04-05] MEDS ORDERED: CHERRY SYRUP 10 ML UDC PO ONE (08:36)
[2021-04-05] MEDS ORDERED: KETOROLAC 60 MG/2 ML VIAL IM STA (08:36)
[2021-04-05 08:52] VITALS: BP 147/87
[2021-04-05 08:58] LABS: BASOPHILS # (AUTO) 0.1 10^3/uL (0.0-0.1); BASOPHILS % (AUTO) 0.9 %; EOSINOPHILS # (AUTO) 0.2 10^3/uL (0.0-0.7); EOSINOPHILS % (AUTO) 2.5 %; HCT - HEMATOCRIT 43.3 % (37.0-47.0); HGB - HEMOGLOBIN 14.2 g/dL (12.0-16.0); LYMPHOCYTES # (AUTO) 2.6 10^3/uL (1.5-3.5); LYMPHOCYTES % (AUTO) 32.3 %; MEAN CORPUSCULAR HEMOGLOBIN 30.2 pg (27.0-31.0); MEAN CORPUSCULAR HGB CONC 32.8 g/dL (32.0-36.0); MEAN CORPUSCULAR VOLUME 92.1 fL (81.0-99.0); MEAN PLATELET VOLUME 9.5 fL (7.9-10.8); MONOCYTES # (AUTO) 0.4 10^3/uL (0.0-1.0); MONOCYTES % (AUTO) 5.1 %; NEUTROPHILS # (AUTO) 4.7 10^3/uL (1.5-6.6); NEUTROPHILS % (AUTO) 58.9 %; PLT - PLATELET COUNT 265 10^3/uL (130-450); RED CELL DISTRIBUTION WIDTH 12.4 % (12.0-15.0)
--- NOTE | 2021-04-05 09:13 | XRAY Report ---
PROCEDURE: Chest 1 View X-Ray INDICATIONS: L chest pain TECHNIQUE: One view of the chest was acquired. COMPARISON: 04/04/21, FINDINGS: Surgical changes and devices: None. Lungs and pleura: No pleural effusions or pneumothorax. Lungs are clear. Mediastinum: Mediastinal contours appear normal. Heart size is normal. Bones and chest wall: No suspicious bony lesions. Overlying soft tissues appear unremarkable. IMPRESSION: 1. No acute cardiopulmonary disease. Reviewed by: Avinash Travis MD on 04/05/2021 8:12 AM [facility] Approved by: Avinash Travis MD on 04/05/2021 8:12 AM [facility] Station ID: [id number]
[2021-04-05 09:29] LABS: ALBUMIN 4.1 g/dL (3.2-5.5); ALBUMIN/GLOBULIN RATIO 1.1 (1.0-2.2); BILIRUBIN,TOTAL 0.4 mg/dL (0.2-1.0); CALCIUM 8.8 mg/dL (8.5-10.3); CREATININE 0.7 mg/dL (0.4-1.0); POTASSIUM 3.9 mmol/L (3.5-5.0); TOTAL PROTEIN 7.7 g/dL (6.7-8.2)
== END 2021-04-05 09:51 | disposition home or self-care (01) ==
LOC: ED 07:59
DX: R07.89 Other chest pain (principal); F17.200 Nicotine dependence, unspecified, uncomplicated
CPT/HCPCS: 36415; 71045; 80053; 83690; 84484; 85025; 93005; 96372; 99284; A9270

== ENCOUNTER 2021-05-01 19:09 | Emergency (ER) | payer MEDICAID ==
[2021-05-01 19:17] VITALS: BP 152/73
[2021-05-01] MEDS ORDERED: IBUPROFEN 800 MG TABLET PO STA (19:31)
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
--- NOTE | 2021-05-01 20:05 | XRAY Report ---
PROCEDURE: Wrist 4 View BILAT INDICATIONS: B wrist pain/ remote innj TECHNIQUE: 4 views of each wrist were acquired. COMPARISON: None FINDINGS: Bones: No fractures or dislocations. No suspicious bony lesions. Scaphoid view: Negative Soft tissues: No suspicious soft tissue calcifications. IMPRESSION: No acute fracture. No osseous lesion. If symptoms and/or clinical suspicion for pathology continue, f urther assessment with repeat plain films, or advanced imaging (e.g., CT, MRI, or bone scan) is recom mended for further assessment. Reviewed by: Ruma Cruz MD on 05/01/2021 8:04 PM PST Approved by: Ruma Cruz MD on 05/01/2021 8:04 PM PST Station ID: [id number]
== END 2021-05-01 20:22 | disposition home or self-care (01) ==
LOC: ED 19:09
DX: M19.032 Primary osteoarthritis, left wrist (principal); M19.031 Primary osteoarthritis, right wrist; F17.200 Nicotine dependence, unspecified, uncomplicated
CPT/HCPCS: 73110; 99283; A9270

== ENCOUNTER 2021-05-17 08:25 | Emergency (ER) | payer MEDICAID ==
--- NOTE | 2021-05-17 08:58 | ED Physician Documentation ---
PD HPI HEADACHE - Stated complaint Stated Complaint: HEADACHE - Chief complaint Chief Complaint: Neuro - History obtained from History obtained from: Patient - History of Present Illness Timing - onset: How many hours ago (3-4), Today Timing - onset during: Sleep, Rest Timing - duration: Hours (3-4) Timing - details: Abrupt onset, Still present Worst headache ever?: No: Worst headache ever? (feeling similar to prior migraines. She states the pharmacy would not refill her latest Rx for Imitrex self injector. So no migraine meds at home right now.) Location: Front, Global Quality: Throbbing, Aching Associated symptoms: Nausea. No: Fever, Stiff neck, Vomiting, Weakness Worsened by: Light, Noise Contributing factors: No: Hypertension, Recent illness, Trauma Similar symptoms before: Diagnosis (migraines.) Recently seen: Not recently seen Review of Systems Constitutional: denies: Fever, Chills Eyes: reports: Photophobia. denies: Decreased vision Nose: denies: Rhinorrhea / runny nose, Congestion Throat: denies: Sore throat Cardiac: denies: Chest pain / pressure Respiratory: denies: Cough GI: reports: Nausea. denies: Abdominal Pain Skin: denies: Rash, Lesions Neurologic: reports: Headache. 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 HEENT: None Psych: Depression, Anxiety, Schizophrenia Musculoskeletal: None, Chronic back pain Derm: None - Past Surgical History Past Surgical History: Yes Derm: Skin grafts - Present Medications Home Medications: Ambulatory Orders Medication Instructions Recorded Confirmed Sumatriptan Succinate [Imitrex] 6 mg SQ BID PRN #3 units 05/26/20 05/17/21 Prochlorperazine [Compazine] 5 mg PO Q6H PRN #10 tablet 05/17/21 Rizatriptan Benzoate [Rizatriptan] 10 mg PO Q6H PRN #10 tab 05/17/21 - Allergies Allergies/Adverse Reactions: Allergies Allergy/AdvReac Type Severity Reaction Status Date / Time Sulfa (Sulfonamide Allergy Intermediate Edema Verified 05/17/21 08:34 Antibiotics) - Social History Does the pt smoke?: Yes Smoking Status: Current every day smoker Does the pt drink ETOH?: No Does the pt have substance abuse?: No - Immunizations Immunizations are current?: Yes - POLST Patient has POLST: No PD ED PE NORMAL - Vitals Vital signs reviewed: Yes - General General: Alert and oriented X 3, Well developed/nourished, Other (appears unco mfortable and is holding hand over her eyes. ) - HEENT HEENT: Atraumatic - Neck Neck: Supple, no meningeal sign, No bony TTP, No adenopathy - Cardiac Cardiac: RRR, No murmur - Respiratory Respiratory: Clear bilaterally - Derm Derm: Normal color, Warm and dry, No rash - Neuro Neuro: Alert and oriented X 3, No motor deficit, No sensory deficit, Normal speech Eye Opening: Spontaneous Motor: Obeys Commands Verbal: Oriented GCS Score: 15 Results - Vitals Vitals: Vital Signs - 24 hr 05/17/21 05/17/21 05/17/21 08:32 09:50 10:37 Temperature 36.0 C L 37 C Heart Rate 90 84 80 Respiratory 22 16 16 Rate Blood Pressure 141/112 H 155/83 H 148/75 H O2 Saturation 98 100 96 Oxygen O2 Source Room air PD MEDICAL DECISION MAKING - ED course Complexity details: re-evaluated patient (She was considerably improved after the injections of Inapsine, Imitrex and Toradol.), considered differential, d/w patient Departure - Departure Disposition: 01 Home, Self Care Clinical Impression: Migraine headache Qualifiers: Migraine type: without aura Status migrainosus presence: without status migrainosus Intractability: not intractable Qualified Code(s): G43.009 - Migraine without aura, not intractable, without status migrainosus Condition: Stable Record reviewed to determine appropriate education?: Yes Instructions: ED Headache Migraine Prescriptions: Prochlorperazine [Compazine] 5 mg PO Q6H PRN #10 tablet PRN Reason: Nausea / Vomiting Rizatriptan Benzoate [Rizatriptan] 10 mg PO Q6H PRN #10 tab PRN Reason: Migraine Comments: Since you were having difficulties with the pharmacy getting your injectable sumatriptan, we instead could try a different migraine type medicine. See if it works better than the oral Imitrex. We can try rizatriptan if needed for subsequent migraines in conjunction with Compazine nausea medicine and also add in some ibuprofen or naproxen. See if that combination helps with subsequent migraines. Otherwise continue usual medicines and stay well-hydrated. Discharge Date/Time: 05/17/21 10:46
[2021-05-17] MEDS ORDERED: KETOROLAC 30 MG/ML VIAL IM STA (09:03)
[2021-05-17] MEDS ORDERED: SUMAtriptan 6 MG/0.5 ML VIAL SUBQ STA (09:07)
[2021-05-17] MEDS ORDERED: DROPERIDOL 5 MG/2 ML VIAL IM STA (09:07)
[2021-05-17 10:37] VITALS: BP 148/75
== END 2021-05-17 10:46 | disposition home or self-care (01) ==
LOC: ED 08:25
DX: G43.009 Migraine without aura, not intractable, without status migrainosus (principal); F17.200 Nicotine dependence, unspecified, uncomplicated
CPT/HCPCS: 96372; 99283; 99284

== ENCOUNTER 2021-05-18 19:08 | Emergency (ER) | payer MEDICAID ==
[2021-05-18] MEDS ORDERED: SODIUM CHLORIDE 0.9% 1,000 ML IV STA (20:00)
[2021-05-18] MEDS ORDERED: diphenhydrAMINE INJ 50 MG/ML VIAL IVP STA (20:00)
[2021-05-18] MEDS ORDERED: METOCLOPRAMIDE 10 MG/2 ML VIAL IVP STA (20:00)
[2021-05-18] MEDS ORDERED: SUMAtriptan 6 MG/0.5 ML VIAL SUBQ STA (20:09)
--- NOTE | 2021-05-18 21:16 | ED Physician Documentation ---
PD HPI HEAD INJURY - Stated complaint Stated Complaint: HEADACHES - Chief complaint Chief Complaint: Neuro - History obtained from History obtained from: Patient - Additional information Additional information: Chronic migraines. L side headache since yesterday. Gradual onset, C/W prior migraines. On my eval had already gotten imitrex subq and headache was resolved. 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 HEENT: None Psych: Depression, Anxiety, Schizophrenia Musculoskeletal: None, Chronic back pain Derm: None - Past Surgical History Past Surgical History: Yes Derm: Skin grafts - Present Medications Home Medications: Ambulatory Orders Medication Instructions Recorded Confirmed Sumatriptan Succinate [Imitrex] 6 mg SQ BID PRN #3 units 05/26/20 05/18/21 Prochlorperazine [Compazine] 5 mg PO Q6H PRN #10 tablet 05/17/21 05/18/21 Rizatriptan Benzoate [Rizatriptan] 10 mg PO Q6H PRN #10 tab 05/17/21 05/18/21 Sumatriptan Inj [Imitrex Inj] 6 mg SUBQ BID PRN #4 unit 05/18/21 - Allergies Allergies/Adverse Reactions: Allergies Allergy/AdvReac Type Severity Reaction Status Date / Time Sulfa (Sulfonamide Allergy Intermediate Edema Verified 05/18/21 19:34 Antibiotics) - Social History Does the pt smoke?: Yes Smoking Status: Current every day smoker Does the pt drink ETOH?: No Does the pt have substance abuse?: No - Immunizations Immunizations are current?: Yes - POLST Patient has POLST: No PD ED PE NORMAL - Vitals Vital signs reviewed: Yes - General General: Alert and oriented X 3, No acute distress - HEENT HEENT: PERRL, EOMI - Neck Neck: Supple, no meningeal sign, No bony TTP - Neuro Neuro: Alert and oriented X 3, No motor deficit, No sensory deficit, Normal speech Eye Opening: Spontaneous Motor: Obeys Commands Verbal: Oriented GCS Score: 15 Results - Vitals Vitals: Vital Signs - 24 hr 05/18/21 05/18/21 05/18/21 19:30 20:38 20:55 Temperature 36.6 C 36.9 C Heart Rate 103 H 93 90 Respiratory 20 6 L 14 Rate Blood Pressure 135/78 H 171/92 H 168/79 H O2 Saturation 96 98 100 Oxygen O2 Source Room air PD MEDICAL DECISION MAKING - ED course ED course: The headache is gradual in onset and similar to prior headaches. As such I doubt subarachnoid hemorrhage. There are no infectious symptoms such as fever or stiff neck to make me suspect meningitis. No carbon monoxide exposure by history. Departure - Departure Disposition: Home, Self Care Clinical Impression: Migraine Condition: Good Record reviewed to determine appropriate education?: Yes Instructions: ED Headache Migraine Prescriptions: Sumatriptan Inj [Imitrex Inj] 6 mg SUBQ BID PRN #4 unit PRN Reason: Headache Comments: I sent your prescription to [facility] in [place]. Call your doctor to arrange a follow-up appointment, make the next available appointment. In the interim, return anytime if worse or if new symptoms develop.
[2021-05-18 21:21] VITALS: BP 150/71
== END 2021-05-18 21:20 | disposition home or self-care (01) ==
LOC: ED 19:08
DX: G43.909 Migraine, unspecified, not intractable, without status migrainosus (principal); F17.200 Nicotine dependence, unspecified, uncomplicated
CPT/HCPCS: 96372; 99283

== ENCOUNTER 2021-11-03 07:48 | Emergency (ER) | payer MEDICAID ==
[2021-11-03 08:21] VITALS: BP 135/85
[2021-11-03] MEDS ORDERED: KETOROLAC 30 MG/ML VIAL IM STA (09:48)
[2021-11-03] MEDS ORDERED: SUMAtriptan 6 MG/0.5 ML VIAL SUBQ STA (09:48)
--- NOTE | 2021-11-03 10:20 | ED Physician Documentation ---
PD HPI HEADACHE - Stated complaint Stated Complaint: headache - Chief complaint Chief Complaint: Neuro - History obtained from History obtained from: Patient - Additional information Additional information: The patient comes to the emergency department chief complaint of headache. She states that she has a history of migraines and this feels the same. It started last night but she is out of her Imitrex, which usually works very well for her, so she has come to the emergency department. No other complaints at this time. She has not been nauseated or vomiting. She denies any trauma. Review of Systems Ten Systems: 10 systems reviewed and negative Constitutional: reports: Reviewed and negative Eyes: reports: Reviewed and negative Ears: reports: Reviewed and negative Nose: reports: Reviewed and negative Throat: reports: Reviewed and negative Cardiac: reports: Reviewed and negative Respiratory: reports: Reviewed and negative GI: reports: Reviewed and negative : reports: Reviewed and negative Skin: reports: Reviewed and negative Musculoskeletal: reports: Reviewed and negative Neurologic: reports: Headache, Reviewed and negative Psychiatric: reports: Reviewed and negative Endocrine: reports: Reviewed and negative Immunocompromised: reports: Reviewed and negative PD PAST MEDICAL HISTORY - Past Medical History Cardiovascular: None Respiratory: None Neuro: Migraines Endocrine/Autoimmune: None GI: None 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 HEENT: None Psych: Depression, Anxiety, Schizophrenia Musculoskeletal: None, Chronic back pain Derm: None - Past Surgical History Past Surgical History: Yes Derm: Skin grafts - Present Medications Home Medications: Ambulatory Orders Medication Instructions Recorded Confirmed Sumatriptan Inj [Imitrex Inj] 6 mg SUBQ BID PRN #4 unit 05/18/21 SUMAtriptan [Imitrex] 25 mg PO Q6H PRN #20 tablet 11/03/21 - Allergies Allergies/Adverse Reactions: Allergies Allergy/AdvReac Type Severity Reaction Status Date / Time Sulfa (Sulfonamide Allergy Intermediate Edema Verified 11/03/21 08:21 Antibiotics) prochlorperazine Allergy Unknown Verified 11/03/21 08:21 [From Compazine] rizatriptan Allergy Unknown Verified 11/03/21 08:21 - Social History Does the pt smoke?: Yes Smoking Status: Current every day smoker Does the pt drink ETOH?: No Does the pt have substance abuse?: No - Immunizations Immunizations are current?: Yes - POLST Patient has POLST: No PD ED PE NORMAL - General General: Alert and oriented X 3, No acute distress, Well developed/nourished, Other (The patient is lying in a darkened room with her eyes closed.) - HEENT HEENT: Atraumatic, PERRL, EOMI, Moist mucous membranes - Neck Neck: Supple, no meningeal sign - Cardiac Cardiac: RRR, No murmur, Strong equal pulses - Respiratory Respiratory: No respiratory distress Results - Vitals Vitals: Oxygen O2 Source Room air PD MEDICAL DECISION MAKING - ED course Complexity details: considered differential, d/w patient ED course: Pt was given doses of Imitrex and Toradol in the ED, after which she was feeling better and requested discharge. Departure - Departure Disposition: 01 Home, Self Care Clinical Impression: Migraine Qualifiers: Migraine type: unspecified Status migrainosus presence: without status migrainosus Intractability: not intractable Qualified Code(s): G43.909 - Migraine, unspecified, not intractable, without status migrainosus Condition: Stable Instructions: ED Headache Migraine Prescriptions: SUMAtriptan [Imitrex] 25 mg PO Q6H PRN #20 tablet PRN Reason: Migraine Discharge Date/Time: 11/03/21 10:36
== END 2021-11-03 10:36 | disposition home or self-care (01) ==
LOC: ED 07:48
DX: G43.909 Migraine, unspecified, not intractable, without status migrainosus (principal); F17.200 Nicotine dependence, unspecified, uncomplicated
CPT/HCPCS: 96372; 99282; 99283

== ENCOUNTER 2022-01-12 06:15 | Emergency (ER) | payer MEDICAID ==
[2022-01-12 06:25] VITALS: BP 148/86
--- NOTE | 2022-01-12 07:11 | ED Physician Documentation ---
PD HPI HEADACHE - Stated complaint Stated Complaint: HEADACHE - Chief complaint Chief Complaint: Neuro - History obtained from History obtained from: Patient - History of Present Illness Timing - onset: Last night Timing - onset during: Sleep Timing - duration: Hours Timing - details: Abrupt onset, Still present Worst headache ever?: No: Worst headache ever? (similar to other migraines) Location: Right Quality: Throbbing, Aching Associated symptoms: Nausea, Vision changes (some blurring right eye). No: Fever, Stiff neck, Vomiting, Weakness, Numbness Worsened by: Light, Noise Contributing factors: No: Hypertension, Trauma Similar symptoms before: Diagnosis (migraines - she typically will use Imitrex and Zofran for it, but is out of meds.) Review of Systems Constitutional: denies: Fever, Chills Nose: denies: Rhinorrhea / runny nose, Congestion Throat: denies: Sore throat Respiratory: denies: Cough GI: reports: Nausea. denies: Abdominal Pain, Vomiting, Diarrhea Neurologic: reports: Headache. 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 : None HEENT: None Psych: Depression, Anxiety, Schizophrenia Musculoskeletal: None, Chronic back pain Derm: None - Past Surgical History Past Surgical History: Yes Derm: Skin grafts - Present Medications Home Medications: Ambulatory Orders Medication Instructions Recorded Confirmed Sumatriptan Inj [Imitrex Inj] 6 mg SUBQ BID PRN #4 unit 05/18/21 01/12/22 SUMAtriptan [Imitrex] 25 mg PO Q6H PRN #20 tablet 11/03/21 01/12/22 Naproxen 500 mg PO BID PRN #15 tab 01/12/22 Ondansetron Odt [Zofran] 4 mg TL Q6H PRN #15 tablet 01/12/22 Sumatriptan Succinate [Imitrex] 50 mg PO Q6H PRN #15 tablet 01/12/22 - Allergies Allergies/Adverse Reactions: Allergies Allergy/AdvReac Type Severity Reaction Status Date / Time Sulfa (Sulfonamide Allergy Intermediate Edema Verified 01/12/22 06:24 Antibiotics) prochlorperazine Allergy Unknown Verified 01/12/22 06:24 [From Compazine] rizatriptan Allergy Unknown Verified 01/12/22 06:24 - Social History Does the pt smoke?: Yes Smoking Status: Current every day smoker Does the pt drink ETOH?: No Does the pt have substance abuse?: No - Immunizations Immunizations are current?: Yes - POLST Patient has POLST: No PD ED PE NORMAL - Vitals Vital signs reviewed: Yes - General General: Alert and oriented X 3, Well developed/nourished, Other (appears uncomfortable due to headache. Conversant. ) - HEENT HEENT: Atraumatic - Neck Neck: Supple, no meningeal sign, No bony TTP - Derm Derm: Normal color, Warm and dry - Neuro Neuro: Alert and oriented X 3, No motor deficit, No sensory deficit, Normal speech Results - Vitals Vitals: Vital Signs - 24 hr 01/12/22 06:22 Temperature 36.5 C Heart Rate 96 Respiratory 18 Rate Blood Pressure 148/86 H O2 Saturation 100 Oxygen O2 Source Room air PD MEDICAL DECISION MAKING - ED course Complexity details: re-evaluated patient (improved with migraine meds. ), considered differential, d/w patient Departure - Departure Disposition: 01 Home, Self Care Clinical Impression: Migraine Qualifiers: Migraine type: without aura Condition: Stable Record reviewed to determine appropriate education?: Yes Instructions: ED Headache Migraine Prescriptions: Sumatriptan Succinate [Imitrex] 50 mg PO Q6H PRN #15 tablet PRN Reason: Migraine Naproxen 500 mg PO BID PRN #15 tab PRN Reason: Pain Ondansetron Odt [Zofran] 4 mg TL Q6H PRN #15 tablet PRN Reason: Nausea / Vomiting Comments: I wrote for more of your migraines medications of antiemetic, anti-inflammatory and the sumatriptan to take with recurring migraines. Sent the xripts to [facility] pharmacy. Discharge Date/Time: 01/12/22 07:54
[2022-01-12] MEDS ORDERED: SUMAtriptan 6 MG/0.5 ML VIAL SUBQ STA (07:20)
[2022-01-12] MEDS ORDERED: ONDANSETRON 4 MG/2 ML VIAL IM STA (07:20)
[2022-01-12] MEDS ORDERED: KETOROLAC 30 MG/ML VIAL IM STA (07:20)
== END 2022-01-12 07:54 | disposition home or self-care (01) ==
LOC: ED 06:15
DX: G43.009 Migraine without aura, not intractable, without status migrainosus (principal); F17.200 Nicotine dependence, unspecified, uncomplicated
CPT/HCPCS: 96372; 99282; 99283

== ENCOUNTER 2022-02-06 08:00 | Outpatient (CLI) | payer MEDICAID ==
[2022-02-06 22:19] LABS: BACTERIAL VAGINOSIS DNA NEGATIVE (NEGATIVE); CANDIDA GLABRATA DNA POSITIVE (NEGATIVE); CANDIDA GROUP DNA NEGATIVE (NEGATIVE); CANDIDA KRUSEI DNA NEGATIVE (NEGATIVE); TRICHOMONAS VAGINALIS DNA NEGATIVE (NEGATIVE)
[2022-02-06 23:27] LABS: CHLAMYDIA TRACHOMATIS DNA NEGATIVE (NEGATIVE); NEISSERIA GONORRHOEAE DNA NEGATIVE (NEGATIVE)
[2022-02-13 08:23] LABS: RPR Non-reactive
[2022-02-13 08:24] LABS: HIV SCREEN 4TH GENERATION Non-reactive
== END 2022-02-06 23:59 | disposition home or self-care (01) ==
LOC: LAB.N 08:00
PROVIDERS: ATTEND Family Medicine
DX: N94.10 Unspecified dyspareunia (principal)
CPT/HCPCS: 36415; 81514; 86592; 86695; 86696; 86803; 87255; 87389; 87491; 87591; 87661

== ENCOUNTER 2022-04-16 15:47 | Emergency (ER) | payer MEDICAID ==
[2022-04-16 16:03] VITALS: BP 164/88
[2022-04-16] MEDS ORDERED: SUMAtriptan 6 MG/0.5 ML VIAL SUBQ STA (16:21)
--- NOTE | 2022-04-16 16:23 | ED Physician Documentation ---
PD HPI HEADACHE - Stated complaint Stated Complaint: MIGRAINE - Chief complaint Chief Complaint: Neuro - History obtained from History obtained from: Patient - Additional information Additional information: 57-year-old woman with recurrent migraines presents with her usual migraines starting this morning. Gradual onset global throbbing headache associated with light sensitivity and nausea. She usually has good improvement after Imitrex and requests a prescription for that as well. No fevers or neck stiffness. 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 : None HEENT: None Psych: Depression, Anxiety, Schizophrenia Musculoskeletal: None, Chronic back pain Derm: None - Past Surgical History Past Surgical History: Yes Derm: Skin grafts - Present Medications Home Medications: Ambulatory Orders Medication Instructions Recorded Confirmed Sumatriptan Inj [Imitrex Inj] 6 mg SUBQ BID PRN #4 unit 05/18/21 01/12/22 SUMAtriptan [Imitrex] 25 mg PO Q6H PRN #20 tablet 11/03/21 01/12/22 Naproxen 500 mg PO BID PRN #15 tab 01/12/22 Ondansetron Odt [Zofran] 4 mg TL Q6H PRN #15 tablet 01/12/22 Sumatriptan Succinate [Imitrex] 50 mg PO Q6H PRN #15 tablet 01/12/22 Sumatriptan Succinate [Imitrex] 100 mg PO DAILY PRN #20 tablet 04/16/22 - Allergies Allergies/Adverse Reactions: Allergies Allergy/AdvReac Type Severity Reaction Status Date / Time Sulfa (Sulfonamide Allergy Intermediate Edema Verified 01/12/22 06:24 Antibiotics) prochlorperazine Allergy Unknown Verified 01/12/22 06:24 [From Compazine] rizatriptan Allergy Unknown Verified 01/12/22 06:24 - Social History Does the pt smoke?: Yes Smoking Status: Current every day smoker Does the pt drink ETOH?: No Does the pt have substance abuse?: No - Immunizations Immunizations are current?: Yes - POLST Patient has POLST: No PD ED PE NORMAL - Vitals Vital signs reviewed: Yes - General General: Alert and oriented X 3, Other (Appears uncomfortable and light sensitive) - HEENT HEENT: PERRL, EOMI - Neck Neck: Supple, no meningeal sign, No bony TTP - Neuro Neuro: Alert and oriented X 3, manager assurance 2-12 intact, No motor deficit, No sensory deficit, Normal speech Eye Opening: Spontaneous Motor: Obeys Commands Verbal: Oriented GCS Score: 15 Results - Vitals Vitals: Vital Signs - 24 hr 04/16/22 16:00 Temperature 36.7 C Heart Rate 97 Respiratory 16 Rate Blood Pressure 164/88 H O2 Saturation 97 Oxygen O2 Source Nasal cannula PD MEDICAL DECISION MAKING - ED course ED course: 6 mg of subcutaneous Imitrex here per patient request and a prescription to go. The headache is gradual in onset and similar to prior headaches. As such I do ubt subarachnoid hemorrhage. There are no infectious symptoms such as fever or stiff neck to make me suspect meningitis. No carbon monoxide exposure by history. Departure - Departure Disposition: 01 Home, Self Care Clinical Impression: Migraine Condition: Good Record reviewed to determine appropriate education?: Yes Instructions: ED Headache Migraine Prescriptions: Sumatriptan Succinate [Imitrex] 100 mg PO DAILY PRN #20 tablet PRN Reason: Headache Comments: Call your doctor to arrange a follow-up appointment, make the next available appointment. In the interim, return anytime if worse or if new symptoms develop. Discharge Date/Time: 04/16/22 16:35
== END 2022-04-16 16:35 | disposition home or self-care (01) ==
LOC: ED 15:47
DX: G43.909 Migraine, unspecified, not intractable, without status migrainosus (principal); F17.200 Nicotine dependence, unspecified, uncomplicated
CPT/HCPCS: 96372; 99282; 99283

== ENCOUNTER 2022-04-17 09:41 | Outpatient (CLI) | payer MEDICAID ==
--- NOTE | 2022-04-20 11:44 | Mammography Report ---
BILATERAL DIGITAL DIAGNOSTIC MAMMOGRAM 3D/2D: 04/17/2022 CLINICAL: Patient returns today for follow up of focal asymmetry in the left breast. Due for beverly claros Comparison is made to exams dated: 05/25/2018 mammogram and 05/25/2018 ultrasound - [facility]. There are scattered areas of fibroglandular density in both breasts (category b / 25%-50% glandular t issue). No significant masses, calcifications, or other findings are seen in either breast. There has been no significant interval change. IMPRESSION: NEGATIVE There is no mammographic evidence of malignancy. A 1 year screening mammogram is recommended. Based on the Tyrer Cuzick model (a risk assessment model) the patients lifetime risk is 9.3% and her 10 year risk is 3.6%. According to the ACR, ACS, and NCCN guidelines, an annual breast MRI exam shine g with mammogram is recommended if the patients lifetime risk is 20% or greater. This exam was interpreted at Station ID: [id number]. NOTE: For mammograms, a report in lay terms will be sent to the patient. Approximately 15% of breast malignancies will not be visualized mammographically. In the management of a palpable breast mass, a negative mammogram must not discourage biopsy of a clinically suspicious lesion. Electronically Signed By: Zeb Thakkar M.D., jr/roxana:04/17/2022 11:27:12 ACR BI-RADS Category 1: Negative 3341F PARENCHYMAL PATTERN: (A) - The breast(s) demonstrate(s) scattered fibroglandular densities. BI-RADS CATEGORY: (1) - 1 RECOMMENDATION: (ANNUAL) - Recommend routine annual screening mammography. [id number] 1 year screening LATERALITY: (B)
== END 2022-04-17 09:42 | disposition home or self-care (01) ==
LOC: DI 09:41
PROVIDERS: ATTEND Obstetrics & Gynecology
DX: R92.8 Other abnormal and inconclusive findings on diagnostic imaging of breast (principal)

== ENCOUNTER 2022-07-11 12:31 | Emergency (ER) | payer MEDICAID ==
[2022-07-11 12:41] VITALS: BP 172/79
[2022-07-11] MEDS ORDERED: HYDROcod/ACETAM 5/325 MG TABLET PO STA (13:33)
[2022-07-11] MEDS ORDERED: IBUPROFEN 600 MG TABLET PO STA (13:33)
--- NOTE | 2022-07-11 13:35 | ED Physician Documentation ---
PD HPI UPPER EXT INJURY - Stated complaint Stated Complaint: FALL - Chief complaint Chief Complaint: Trauma Ext - History obtained from History obtained from: Patient - Additonal information Additional information: She initially injured her right clavicle back in 2018. She has had trouble and pain at the medial clavicle ever since and she feels like there was a lump there. She fell again a few days ago while carrying garbage and reinjured the same spot and has pain and an increased lump at the medial right clavicle. No other injuries. 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 : None HEENT: None Psych: Depression, Anxiety, Schizophrenia Musculoskeletal: None, Chronic back pain Derm: None - Past Surgical History Past Surgical History: Yes Derm: Skin grafts - Present Medications Home Medications: Ambulatory Orders Medication Instructions Recorded Confirmed Naproxen 500 mg PO BID PRN #15 tab 01/12/22 05/30/22 Ondansetron Odt [Zofran] 4 mg TL Q6H PRN #15 tablet 01/12/22 05/30/22 Sumatriptan Succinate [Imitrex] 100 mg PO DAILY PRN #20 tablet 04/16/22 05/30/22 - Allergies Allergies/Adverse Reactions: Allergies Allergy/AdvReac Type Severity Reaction Status Date / Time Sulfa (Sulfonamide Allergy Intermediate Edema Verified 07/11/22 12:41 Antibiotics) prochlorperazine Allergy Unknown Verified 07/11/22 12:41 [From Compazine] rizatriptan Allergy Unknown Verified 07/11/22 12:41 - Social History Does the pt smoke?: Yes Smoking Status: Current every day smoker Does the pt drink ETOH?: No Does the pt have substance abuse?: Yes - Immunizations Immunizations are current?: Yes - POLST Patient has POLST: No PD ED PE NORMAL - Vitals Vital signs reviewed: Yes - General General: Alert and oriented X 3, No acute distress - Neck Neck: Supple, no meningeal sign, No bony TTP - Cardiac Cardiac: Other (There is distinct swelling, prominence, and tenderness at the medial right clavicle. It is suggestive of either fracture with callus formation versus an anterior clavicular dislocation.) - Back Back: No CVA TTP, No spinal TTP - Derm Derm: Normal color, Warm and dry - Extremities Extremities: Other (The right shoulder itself is nontender but she does have limited range of motion there but she relates that to the medial clavicle.) - Neuro Neuro: Alert and oriented X 3, Normal speech Results - Vitals Vitals: Vital Signs - 24 hr 07/11/22 12:37 Temperature 36.7 C Heart Rate 97 Respiratory 16 Rate Blood Pressure 172/79 H O2 Saturation 100 Oxygen O2 Source Room air - Rads (name of study) CT Chest- See MDM Relevant Findings:: Final report received, Discussed with rads, EMP independent interpretation of test PD Medical Decision Making - ED course ED course: 57-year-old woman with a chronic injury to the right medial clavicle with p reviously negative plain imaging. Reinjury more recently with more pain and swelling of the medial clavicle/sternoclavicular joint. Given the poor sensitivity of plain film for medial clavicular injuries a CT was done. The initial interpretation by the radiologist was negative, but I felt there was significant abnormalities at the medial sternoclavicular joint on the right and we called and discussed this. He did write an addendum which is as follows: There are osteophytes of the medial clavicles bilaterally with fragmentation superiorly bilaterally at the sternoclavicular joints. The fragments appear well-corticated with no evidence of an acute fracture, however a chronic fracture and possible reinjury of a chronic fracture is a possibility. Additionally there are severe degenerative changes with subchondral sclerosis and subchondral cystic changes worse on the right compared to the left. Discussed with the patient that she probably has chronic arthritic pain there with was exacerbated by more recent trauma but there was no recent fracture. She would like to start pain medication for this but I discussed that this is not a chronic problem and she would need to discuss this with her primary care physician especially in light of the history of drug abuse. Departure - Departure Disposition: 01 Home, Self Care Clinical Impression: Right clavicle fracture Qualifiers: Encounter type: subsequent encounter Clavicle location: sternal end Fracture type: closed Fracture alignment: anteriorly displaced Fracture healing: with malunion Qualified Code(s): S42.011P - Anterior displaced fracture of sternal end of right clavicle, subsequent encounter for fracture with malunion Condition: Good Record reviewed to determine appropriate education?: Yes Instructions: ED Fx Clavicle Comments: On the CT scan it looks like you probably have a chronic medial clavicular fracture. It is already pretty much healed but may give you some ongoing pain for which you can take Tylenol. Follow-up with your doctor in a week for recheck. Return for new or worsening symptoms. Discharge Date/Time: 07/11/22 15:33
--- NOTE | 2022-07-11 15:04 | CT Report ---
PROCEDURE: CHEST WO INDICATIONS: Chest wall injuries, suspect medial right clavicul TECHNIQUE: Noncontrast 1mm axial images were acquired from the pulmonary apices to the posterior costophrenic an gles. Axial 5 mm soft tissue kernel reconstructions were performed as well as 8 mm axial MIP and cor onal and sagittal 5 mm reformations. For radiation dose reduction, the following was used: automate d exposure control, adjustment of mA and/or kV according to patient size. COMPARISON: None FINDINGS: Image quality: Excellent. Lungs and pleura: No acute air space opacities. No pleural effusions or pneumothorax. Central and peripheral airways are patent and normal in caliber. Mediastinum: Heart size is normal. No pericardial effusion. No mediastinal adenopathy by size crit eria. Thoracic aorta and central pulmonary arteries are normal in size. Esophagus is normal in kathi rahel. No hiatal hernia. Bones and chest wall: No suspicious bony lesions. No vertebral body compression fractures. No axil jared or supraclavicular adenopathy by size criteria. The thyroid is normal in size and there are no incidental findings. Abdomen: Visualized upper abdominal solid organs and bowel loops appear normal in the absence of con trast. IMPRESSION: No acute abnormality of the chest Reviewed by: Stefano Presley on 07/11/2022 2:03 PM [facility] Approved by: Stefano Presley on 07/11/2022 2:03 PM [facility] Station ID: [id number]
== END 2022-07-11 15:33 | disposition home or self-care (01) ==
LOC: ED 12:31
DX: S42.011 Anterior displaced fracture of sternal end of right clavicle (principal); W19.XXXD Unspecified fall, subsequent encounter; F17.200 Nicotine dependence, unspecified, uncomplicated
CPT/HCPCS: 71250; 99283; 99284; A9270

== ENCOUNTER 2022-08-01 08:00 | Outpatient (CLI) | payer MEDICAID ==
[2022-08-01 21:09] LABS: BACTERIAL VAGINOSIS DNA NEGATIVE (NEGATIVE); CANDIDA GLABRATA DNA NEGATIVE (NEGATIVE); CANDIDA GROUP DNA NEGATIVE (NEGATIVE); CANDIDA KRUSEI DNA NEGATIVE (NEGATIVE); TRICHOMONAS VAGINALIS DNA NEGATIVE (NEGATIVE)
== END 2022-08-01 23:59 | disposition home or self-care (01) ==
LOC: LAB.N 08:00
PROVIDERS: ATTEND Nurse Practitioner
DX: N89.8 Other specified noninflammatory disorders of vagina (principal)
CPT/HCPCS: 81514

== ENCOUNTER 2022-08-05 07:36 | Emergency (ER) | payer MEDICAID ==
[2022-08-05 07:48] VITALS: BP 105/77
== END 2022-08-05 08:42 | disposition left against medical advice (07) ==
LOC: ED 07:36
DX: Z53.21 Procedure and treatment not carried out due to patient leaving prior to being seen by health care provider (principal)

== ENCOUNTER 2022-12-09 07:27 | Emergency (ER) | payer OTHER, MEDICAID ==
[2022-12-09 07:41] VITALS: BP 135/89; O2SAT 98
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
[2022-12-09] MEDS: CYCLOBENZAPRINE 10 MG TABLET PO STA (08:18)
[2022-12-09] MEDS: HYDROcod/ACETAM 5/325 MG TABLET PO STA (08:18)
[2022-12-09] MEDS: NAPROXEN 250 MG TABLET PO STA (08:18)
[2022-12-09 08:53] LABS: ALBUMIN 3.9 g/dL (3.2-5.5); ALBUMIN/GLOBULIN RATIO 1.3 (1.0-2.2); BILIRUBIN,TOTAL 0.3 mg/dL (0.2-1.0); CALCIUM 8.6 mg/dL (8.5-10.3); CREATININE 0.8 mg/dL (0.6-1.3); MAGNESIUM 1.8 mg/dL (1.7-2.3); POTASSIUM 3.6 mmol/L (3.5-4.5)
== END 2022-12-09 09:48 | disposition home or self-care (01) ==
LOC: ED 07:27
DX: M54.50 Low back pain, unspecified (principal); R60.0 Localized edema; F17.200 Nicotine dependence, unspecified, uncomplicated; Z79.899 Other long term (current) drug therapy
CPT/HCPCS: 36415; 80053; 83690; 83735; 99283

== ENCOUNTER 2023-03-06 11:08 | Emergency (ER) | payer MEDICAID ==
[2023-03-06] MEDS ORDERED: SUMAtriptan 6 MG/0.5 ML VIAL SUBQ STA (11:56)
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
[2023-03-06 12:27] VITALS: BP 158/84; O2SAT 100
== END 2023-03-06 12:21 | disposition home or self-care (01) ==
LOC: ED 11:08
DX: G43.909 Migraine, unspecified, not intractable, without status migrainosus (principal); F17.200 Nicotine dependence, unspecified, uncomplicated; Z79.899 Other long term (current) drug therapy
CPT/HCPCS: 96372; 99283

== ENCOUNTER 2023-04-04 13:50 | Emergency (ER) | payer MEDICAID ==
[2023-04-04 14:03] VITALS: BP 148/75; O2SAT 97
--- NOTE | 2023-04-04 15:20 | XRAY Report ---
PROCEDURE: Foot 3 View RT INDICATIONS: Trauma TECHNIQUE: 3 views of the foot were acquired. COMPARISON: None. FINDINGS: Bones: No fractures or dislocations. No suspicious bony lesions. Soft tissues: No suspicious soft tissue calcifications or masses. IMPRESSION: No acute bony abnormality. Reviewed by: Tan Nettles on 04/04/2023 2:19 PM [facility] Approved by: Tan Nettles on 04/04/2023 2:19 PM [facility] Station ID: [id number]
--- NOTE | 2023-04-04 15:43 | ED Physician Documentation ---
PD HPI LOWER EXT INJURY - Stated complaint Stated Complaint: RT FT INJ - Chief complaint Chief Complaint: Trauma Ext - History obtained from History obtained from: Patient - Additional information Additional information: The patient comes to the emergency department chief complaint of right foot dorsum pain after hitting her foot on a 2 x 4 a couple of hours ago. The patient states she feels like something is "moving around" and there. No other complaints at this time. 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 HEENT: None Psych: Depression, Anxiety, Schizophrenia Musculoskeletal: None, Chronic back pain Derm: None - Past Surgical History Past Surgical History: Yes Derm: Skin grafts - Present Medications Home Medications: Ambulatory Orders Medication Instructions Recorded Confirmed Naproxen 500 mg PO BID PRN #15 tab 01/12/22 05/30/22 Ondansetron Odt [Zofran] 4 mg TL Q6H PRN #15 tablet 01/12/22 05/30/22 Sumatriptan Succinate [Imitrex] 100 mg PO DAILY PRN #20 tablet 04/16/22 05/30/22 HYDROcod/ACETAM 5/325 [[place] 5/325] 1 ea PO Q6H PRN #18 tablet 12/09/22 Naproxen 500 mg PO BID #20 tab 12/09/22 tiZANidine [Zanaflex] 4 mg PO Q8H PRN #25 tablet 12/09/22 Sumatriptan Succinate [Imitrex] 100 mg PO DAILY PRN #20 tablet 03/06/23 - Allergies Allergies/Adverse Reactions: Allergies Allergy/AdvReac Type Severity Reaction Status Date / Time Sulfa (Sulfonamide Allergy Intermediate Edema Verified 04/04/23 14:01 Antibiotics) prochlorperazine Allergy Unknown Verified 04/04/23 14:01 [From Compazine] rizatriptan Allergy Unknown Verified 04/04/23 14:01 - Social History Does the pt smoke?: Yes Smoking Status: Current every day smoker Does the pt drink ETOH?: Yes Does the pt have substance abuse?: Yes - Immunizations Immunizations are current?: Yes - POLST Patient has POLST: No PD ED PE NORMAL - General General: Alert and oriented X 3, No acute distress, Other (eating a bag of chips during exam) - HEENT HEENT: Atraumatic - Neck Neck: Supple, no meningeal sign - Respiratory Respiratory: No respiratory distress - Derm Derm: Other (contusion R foot dorsum) - Extremities Extremities: No deformity, No edema, Other (Moderate TTP over R foot dorsum with mild bruising.) Results - Vitals Vitals: Oxygen O2 Source Room air - Rads (name of study) R foot XR series Relevant Findings:: Final report received, See rad report (neg) PD Medical Decision Making - ED course Complexity details: reviewed results, re-evaluated patient, considered differential, d/w patient ED course: I d/w pt that her XR is negative. We have discussed symptomatic management. Departure - Departure Disposition: 01 Home, Self Care Clinical Impression: Foot contusion Qualifiers: Encounter type: initial encounter Laterality: right Qualified Code(s): S90.31XA - Contusion of right foot, initial encounter Condition: Stable Instructions: ED Contusion Foot Comments: Your x-rays look great. You have most likely bruised the top of your foot. You may use ice packs, ibuprofen, and Tylenol to help with the discomfort. Forms: PCP List Discharge Date/Time: 04/04/23 15:59
== END 2023-04-04 15:59 | disposition home or self-care (01) ==
LOC: ED 13:50
DX: S90.31XA Contusion of right foot, initial encounter (principal); W22.8XXA Striking against or struck by other objects, initial encounter; F17.200 Nicotine dependence, unspecified, uncomplicated
CPT/HCPCS: 99282; 99283

== ENCOUNTER 2023-04-16 11:30 | Outpatient (CLI) | payer MEDICAID ==
--- NOTE | 2023-04-16 16:29 | XRAY Report ---
PROCEDURE: Foot 3 View RT INDICATIONS: RIGHT FOOT PAIN TECHNIQUE: 3 views of the foot were acquired. COMPARISON: Right foot radiographs 04/04/2023. FINDINGS: Bones: No fractures or dislocations. No periosteal reaction. No suspicious bony lesions. Soft tissues: No suspicious soft tissue calcifications or masses. No radiopaque foreign body. IMPRESSION: No acute bony abnormality. Reviewed by: Stan Hernandez MD on 04/16/2023 4:28 PM [facility] Approved by: Stan Hernandez MD on 04/16/2023 4:28 PM [facility] Station ID: [id number]
== END 2023-04-16 11:45 | disposition home or self-care (01) ==
LOC: DI.N 11:30
PROVIDERS: ATTEND Physician Assistant Medical
DX: M79.671 Pain in right foot (principal)

== ENCOUNTER 2023-11-28 02:54 | Emergency (ER) | payer MEDICAID ==
[2023-11-28] MEDS: DEXAMETHASONE 10 MG/ML VIAL PO STA (04:03)
[2023-11-28] MEDS: KETOROLAC 30 MG/ML VIAL IM STA (04:03)
[2023-11-28] MEDS: CHERRY SYRUP 10 ML UDC PO ONE (04:03)
--- NOTE | 2023-11-28 04:14 | ED Physician Documentation ---
PD HPI LOWER EXT INJURY - Stated complaint Stated Complaint: RT KNEE PX - Chief complaint Chief Complaint: Ext Problem - History obtained from History obtained from: Patient - History of Present Illness PD HPI LOW EXT INJURY LOCATION: Right, Knee Type of injury: Fall (today at 9pm fell while putting her boots on and fell against a door. Conner her body.), Other (knee just started hurting about one week ago worse with weight bearing and worse with driving putting the foot on the gas. No significant swelling.) Where injury occurred: Home Timing - onset: Enter time (2099) Timing - duration: Hours Timing - details: Abrupt onset, Still present Improved by: Rest Worsened by: Moving Associated symptoms: No: Weakness, Numbness, Tingling, Swelling Contributing factors: No: Anticoagulated Similar symptoms before: Diagnosis (sciatica) Recently seen: Not recently seen - Additional information Additional information: Brianne Arenas is a 58-year-old female with a prior history of sciatica who presents to the emergency department with a chief complaint of pain in the right knee. She does not recall a specific injury to the knee. She states she thinks it started hurting about 1 week ago but this evening when she was driving to the [email or web address] she noted the pain was particularly bad when she was putting her foot on the gas and when she was standing and walking. On the way home she had similar symptoms and she is come now to the emergency department for evaluation. She does have a prior history of sciatica. She has not had a fever or significant swelling to the knee. She cannot recall a specific event of overuse of the knee or of the back. She does recall a fall 2 weeks ago at a friend's house onto her left side again nothing injuring her back or leg. 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 HEENT: None Psych: Depression, Anxiety, Schizophrenia Musculoskeletal: None, Chronic back pain Derm: None - Past Surgical History Past Surgical History: Yes Derm: Skin grafts - Present Medications Home Medications: Ambulatory Orders Medication Instructions Recorded Confirmed No Known Home Medications 11/28/23 11/28/23 - Allergies Allergies/Adverse Reactions: Allergies Allergy/AdvReac Type Severity Reaction Status Date / Time Sulfa (Sulfonamide Allergy Intermediate Edema Verified 11/28/23 03:03 Antibiotics) prochlorperazine Allergy Unknown Verified 11/28/23 03:03 [From Compazine] rizatriptan Allergy Unknown Verified 11/28/23 03:03 - Social History Does the pt smoke?: Yes Smoking Status: Current every day smoker Does the pt drink ETOH?: Yes Does the pt have substance abuse?: Yes - Immunizations Immunizations are current?: Yes - POLST Patient has POLST: No PD ED PE NORMAL - Vitals Vital signs reviewed: Yes (Hypertensive) - General General: Alert and oriented X 3, No acute distress, Well developed/nourished - HEENT HEENT: Atraumatic, PERRL, EOMI - Respiratory Respiratory: No respiratory distress - Derm Derm: Normal color, Warm and dry, No rash - Extremities Extremities: No deformity, Other (Ligaments are stable and she has a normal range of motion without evidence of swelling or effusion. There is some specific point tenderness over the superior portion of patellar tendon and this is not exquisite.) - Neuro Neuro: Alert and oriented X 3, optometry doctor 2-12 intact, No motor deficit, No sensory deficit, Normal speech Eye Opening: Spontaneous Motor: Obeys Commands Verbal: Oriented GCS Score: 15 - Psych Psych: Normal mood, Normal affect Results - Vitals Vitals: Vital Signs - 24 hr 11/28/23 11/28/23 02:59 05:05 Temperature 37.2 C Heart Rate 94 87 Respiratory 16 16 Rate Blood Pressure 154/78 H 145/80 H O2 Saturation 100 98 Oxygen O2 Source Room air PD Medical Decision Making - ED course Complexity details: re-evaluated patient, considered differential, d/w patient ED course: 58-year-old Brianne Arenas with a history of sciatica presents to the emergency department today with right knee pain that is worse with ambulation and use. Examination of the knee does not show any specific abnormality. I suspect her symptoms are related to sciatica and she is treated with 10 mg dexamethasone and 30 mg Toradol with improvement in her pain. Departure - Departure Disposition: 01 Home, Self Care Clinical Impression: Sciatica Qualifiers: Laterality: right Qualified Code(s): M54.31 - Sciatica, right side Condition: Stable Instructions: ED Sciatica Follow-Up: Robert Santana MD [Primary Care Provider] - Comments: Brianne today it looks like you have sciatica as a reason for pain specifically in your knee. The expectation with the treatment we have given you is improvement in your pain in general and this may last another week or so to a lesser extent. Use of ibuprofen or Tylenol as indicated for pain control. Pain not controlled by these measures are an indication to follow-up with your primary care doctor for stronger pain medication. Forms: PCP List Discharge Date/Time: 11/28/23 05:08
[2023-11-28 05:20] VITALS: BP 145/80; O2SAT 98
== END 2023-11-28 05:08 | disposition home or self-care (01) ==
LOC: ED 02:54
DX: M54.31 Sciatica, right side (principal); F17.200 Nicotine dependence, unspecified, uncomplicated
CPT/HCPCS: 96372; 99283; A9270